=== PATIENT | male | born 1940 | race Caucasian/White ===

== ENCOUNTER 2017-09-21 07:29 | Inpatient (IN) | payer OTHER ==
[2017-09-11 12:34] VITALS: Ht 170.2 cm; Wt 98.4 kg
--- NOTE | 2017-09-11 13:15 | PAT Medication Instructions ---
Service Date Sep 11, 2017. Current Home Medication List Acetaminophen (Tylenol), 325 MG PO QD PRN for Pain Aspirin Enteric Coated (Ecotrin Or Generic), 325 MG PO QAM Celecoxib (CeleBREX), 1 CAP PO QAM Metoprolol Tartrate (Lopressor) (Lopressor), 50 MG PO BID Naproxen (Aleve), 1-2 TABS PO QD PRN for Pain Nitroglycerin (Nitrostat), 0.4 MG UT PRN Simvastatin (Zocor), 10 MG PO QPM Tamsulosin Hcl (Flomax), 0.4 MG PO QAM Tolterodine Tartrate (Detrol LA), 1 CAP PO QPM Medication Instructions For Your Scheduled Surgery -Follow your surgeon's instructions for: Aspirin Enteric Coated (Ecotrin Or Generic), 325 MG PO QAM (Will switch to 81MG on 09/14) Celecoxib (CeleBREX), 1 CAP PO QAM (STOP taking on 09/14) Naproxen (Aleve), 1-2 TABS PO QD PRN for Pain -Continue as directed: Nitroglycerin (Nitrostat), 0.4 MG UT PRN - Take the following medications the morning of surgery with a sip of water: Acetaminophen (Tylenol), 325 MG PO QD PRN for Pain (if needed, can be taken up to four hours before surgery) Metoprolol Tartrate (Lopressor) (Lopressor), 50 MG PO BID Tamsulosin Hcl (Flomax), 0.4 MG PO QAM - Take the following medications as scheduled the night before surgery: Acetaminophen (Tylenol), 325 MG PO QD PRN for Pain (if needed) Metoprolol Tartrate (Lopressor) (Lopressor), 50 MG PO BID Simvastatin (Zocor), 10 MG PO QPM Tolterodine Tartrate (Detrol LA), 1 CAP PO QPM If you have any questions please call us at [phone] or [phone] or [phone]
[2017-09-11 13:37] LABS: BASO % 0.4 %; BASO ABS # 0.03 K/uL (0-0.2); EOS % 5.7 %; EOS ABS # 0.41 K/uL (0-0.5); HEMATOCRIT 42.8 % (42-52); IG# 0.03 K/uL (0.00-0.02); LYMPH % 20.5 %; LYMPH ABS # 1.48 K/uL (1.2-3.4); MEAN CELL VOLUME 85.3 fL (80-100); MEAN CORPUSCULAR HEMOGLOBIN 29.9 pg (25-34); MEAN PLATELET VOLUME 11.9 fL (7.4-10.4); MONO % 9.7 %; NEUT % 63.3 %; NEUT ABS # 4.57 K/uL (1.4-6.5); PLATELET COUNT 181 K/uL (130-400); RED CELL DISTRIBUTION WIDTH CV 13.7 % (11.5-14.5); RED CELL DISTRIBUTION WIDTH SD 42.1 fL (36.4-46.3); WHITE BLOOD COUNT 7.22 K/uL (4.8-10.8)
--- NOTE | 2017-09-11 13:42 | DIAGNOSTIC IMAGING REPORT ---
CHEST 2 VIEWS ROUTINE CLINICAL HISTORY: 77 years-old Male presenting with preoperative assessment. TECHNIQUE: PA and lateral views of the chest were obtained. COMPARISON: None. FINDINGS: Median sternotomy wires and bypass graft rings noted. Atherosclerosis of aortic arch. Cardiac silhouette normal in size. Lungs and pleural spaces clear. Degenerative changes of the thoracic spine. Upper abdomen normal. IMPRESSION: 1. No acute cardiopulmonary disease. Electronically signed by: Paul Orantes M.D. 09/11/2017 1:41 PM Dictated Date/Time: 09/11/2017 1:40 PM
[2017-09-11 13:52] LABS: CALCIUM 8.8 mg/dl (8.5-10.1); CREATININE 0.99 mg/dl (0.60-1.40); POTASSIUM 4.8 mmol/L (3.5-5.1)
[~2017-09-21] VITALS: Ht 170.2 cm; Wt 98.4 kg
[2017-09-21] VITALS (9 sets, daily range): BP systolic 121–166; BP diastolic 63–77; PULSE 54–86; TEMP 36.3–36.6; O2SAT 96–99
[~2017-09-21 07:29] MED LIST: ACET-1311 PO; ACETAMINOPHEN 500 MG TAB PO SCH; ASPI-113 PO; CEFAZOLIN 2000MG IV PUSH 15 ML IV SCH; CLB/200 PO; CeleBREX 200 MG CAP PO SCH; DTRSR4 PO; GABAPENTIN 300 MG CAP PO SCH; ISOS30TA3 PO; LACTATED RINGER'S 1000ML 1,000 ML IV SCH; METO50TA16 PO; NAPR1TAB9 PO; NTRGSL/4 UT; SIMV10TA2 PO; TAMS0.4C38 PO
[2017-09-21] MEDS ORDERED: MIDAZOLAM HCL 1 MG/ML 2ML VIAL ONE (09:42)
[2017-09-21] MEDS ORDERED: FENTANYL CITRATE INJ 50 MCG/1 ML 2 ML VIAL ONE ×3 (09:42→12:03)
--- NOTE | 2017-09-21 09:46 | History & Physical Bridge Note ---
H&P Re-Evaluation Bridge Note: I have examined the patient, reviewed the History & Physical and in the interval since the performance of the History & Physical I have noted the following changes of clinical significance: No changes noted
--- NOTE | 2017-09-21 09:47 | History and Physical ---
History & Physical Date Sep 21, 2017. Chief Complaint Back and leg pain History of Present Illness The patient is a 77 year old male with complaints of back and leg pain Additional History Hepatic Disease: No Endocrine Disorder: No Kidney Disease: No Hypertension: Yes Heart Disease: No Bleeding Tendencies: No Infectious Diseases: No Allergies Coded Allergies: No Known Allergies (Verified , 09/21/17) Home Medications Scheduled Aspirin Enteric Coated (Ecotrin Or Generic), 325 MG PO QAM Celecoxib (CeleBREX), 1 CAP PO QAM Isosorbide Mononitrate Ext Rel (Imdur Ext Rel), 30 MG PO QAM Metoprolol Tartrate (Lopressor) (Lopressor), 50 MG PO BID Nitroglycerin (Nitrostat), 0.4 MG UT PRN Simvastatin (Zocor), 10 MG PO QPM Tamsulosin Hcl (Flomax), 0.4 MG PO QAM Tolterodine Tartrate (Detrol LA), 1 CAP PO QPM Scheduled PRN Acetaminophen (Tylenol), 325 MG PO QD PRN for Pain Naproxen (Aleve), 1-2 TABS PO QD PRN for Pain Physical Examination Skin: warm/dry, no rash Eyes: normal inspection, EOMI, sclerae normal ENT: normal ENT inspection, pharynx normal Head: normocephalic, atraumatic Neck: supple, no adenopathy, trachea midline Respiratory/Chest: lungs clear, normal breath sounds, no respiratory distress Cardiovascular: regular rate, rhythm, no edema, no murmur Abdomen / GI: normal bowel sounds, non tender Back: normal inspection Extremities: normal inspection, normal range of motion Neurologic/Psych: no motor/sensory deficits, alert, normal reflexes, oriented x 3 Diagnosis Lumbar spinal stenosis with neurogenic claudication Plan of Treatment Peek compression and fusion L4-S1 possible L3-4
[2017-09-21] MEDS ORDERED: BUPIVACAINE/EPINEPHRINE 0.5% MPF 1:200,000 30 ML VIAL ONE (10:03)
[2017-09-21] MEDS ORDERED: BACITRACIN 50000 UNIT VIAL ONE (10:03)
[2017-09-21] MEDS ORDERED: ATROPINE SULFATE 0.1 MG/ML 5ML SYR IV PRN (10:15)
[2017-09-21] MEDS ORDERED: HYDROmorphone INJ 0.5 MG/0.5 ML SYR IV PRN (10:15)
[2017-09-21] MEDS ORDERED: PROMETHAZINE HCL INJ 6.25 MG in SODIUM CHLORIDE 0.9% 50ML 50 ML IV PRN (10:15)
[2017-09-21] MEDS ORDERED: ONDANSETRON INJ 2 MG/ML 2 ML VIAL IV PRN ×2 (10:15→13:00)
[2017-09-21] MEDS ORDERED: FENTANYL CITRATE INJ 50 MCG/1 ML 2 ML VIAL IV PRN (10:15)
[2017-09-21] MEDS ORDERED: EpHEDrine SULFATE INJ 50 MG/ML AMP IV PRN (10:15)
[2017-09-21] MEDS ORDERED: HYDROmorphone INJ 2 MG/ML SYR/VIAL ONE ×2 (10:39→12:47)
[2017-09-21] MEDS ORDERED: ALBUMIN HUMAN 5% 12.5 GM/250 ML VIAL IV ONE ×2 (11:55→12:49)
[2017-09-21] MEDS ORDERED: SODIUM CHLORIDE 0.9% 1000ML 1,000 ML IV SCH (12:51)
--- NOTE | 2017-09-21 12:51 | [facility] Operative Report ---
Operative Report Operative Date Sep 21, 2017. Pre-Operative Diagnosis Lumbar spinal stenosis with neurogenic claudication Post-Operative Diagnosis Lumbar spinal stenosis with neurogenic claudication Procedure(s) Performed 1. Lumbar decompression medial facetectomies foraminotomies L2-3 L3-4 L4-5 L5-S1. #2 posterior spinal fusion L3-4 L4-5 L5-S1. #3 placement posterior segmental instrumentation L3-4 L4-5 L5-S1. #4 interbody fusion L5-S1. #5 placement titanium cage 14 x 26 mm at L5-S1. #6 placement of locally harvested morselized autograft in the posterior gutters. #7 placement InFUSE collagen sponge combined with mass graft in the posterior lateral gutters and ostial amp in the interbody space. Surgeon Dr. Godoy [facility] Surgeon(s) Leanne Gaitan PA-C Estimated Blood Loss 750ml Findings Severe central spinal stenosis with spondylolisthesis Specimens None per surgeon Anesthesia Type General Description of Procedure Patient was met with preoperatively case discussed all questions addressed. After informed consent obtained patient was taken to the operative suite underwent intubation and placed in a prone position injection of 1 of the Claudio frame all bony prominences well-padded eyes inspected to ensure no external pressure placed upon the. This point the lumbar spine was prepped and draped in the normal sterile fashion. Sharp dissection with the assistance of Bovie cautery was performed down to and exposing the lamina and transverse processes of L3-L4-L5 and sacral ala bilaterally. Obvious pars defect at L4 551 appreciated. Complete laminectomy of L5 L4 L3 and partial laminectomy of L2 was performed addressing severe lateral recess and foraminal disease. Pedicle screws in place and L3-L4 L5-S1 levels bilaterally with the assistance of fluoroscopy and a Propacet holger placed. Through a trans-foraminal approach and left complete discectomy of L5-S1 was performed endplates created to subcortical bleeding bone and a 14 x 26 mm titanium cage filled with OsteoSet bone graft tapped in position. Rods were then locked in final position bilaterally. Transverse processes of L3-L4-L5 and sacral ala burred to subcortical bleeding bone. Infuse collagen sponge mesh graft and locally harvested morselized auto was placed in the posterior lateral gutters. 15 round CARYL drain inserted. Incision was then closed with 1 Vicryl fascia 2-0 Vicryl superonasally 4 Monocryl for final skin closure Steri-Strips sterile dressings placed. Patient will continue PACU stable condition. Please note Leanne Menard present throughout the entire procedure involved in patient positioning complex portions of the surgery and final skin closure. I attest to the content of the Intraoperative Record and any orders documented therein. Any exceptions are noted below.
[2017-09-21] MEDS ORDERED: FLOSEAL HEMOSTATIC MATRIX 10ML TOP ONE (12:54)
[2017-09-21] MEDS ORDERED: PROPOFOL IV EMULSION 10 MG/ML 20 ML VIAL IV ONE (12:57)
[2017-09-21] MEDS ORDERED: NEOSTIGMINE METHYLSULFATE 1 MG/ML 10ML VIAL ONE (12:57)
[2017-09-21] MEDS ORDERED: ONDANSETRON INJ 2 MG/ML 2 ML VIAL ONE ×2 (12:57)
[2017-09-21] MEDS ORDERED: KETOROLAC TROMETHAMINE 30 MG/ML VIAL ONE (12:57)
[2017-09-21] MEDS ORDERED: LIDOCAINE HCL 2% 2 ML VIAL (20MG/ML) ONE (12:57)
[2017-09-21] MEDS ORDERED: ROCURONIUM BROMIDE 10 MG/ML 5 ML VIAL IV ONE (12:57)
[2017-09-21] MEDS ORDERED: DEXAMETHASONE SOD INJ 4 MG/ML VIAL ONE (12:57)
[2017-09-21] MEDS ORDERED: EpHEDrine SULFATE 50MG/5ML SYR ONE (12:57)
[2017-09-21] MEDS ORDERED: GLYCOPYRROLATE INJ 0.2 MG/ML VIAL ONE (12:57)
[2017-09-21] MEDS ORDERED: MAGNESIUM HYDROXIDE SUSP 30 ML UDC PO PRN (13:00)
[2017-09-21] MEDS ORDERED: BISACODYL 10 MG SUPP PR PRN (13:00)
[2017-09-21] MEDS ORDERED: PROMETHAZINE HCL INJ 12.5 MG in SODIUM CHLORIDE 0.9% 50ML 50 ML IV PRN (13:00)
[2017-09-21] MEDS ORDERED: LORAZEPAM INJ 0.5 MG in SYRINGE 0.75 ML IV PRN (13:00)
[2017-09-21] MEDS ORDERED: SOD PHOSPHATE/SOD BIPHOSPHATE ENEMA 132 ML BTL PR PRN (13:00)
[2017-09-21] MEDS ORDERED: NALOXONE HCL 0.4 MG/1 ML VIAL/CARP IV PRN ×2 (13:00)
[2017-09-21] MEDS ORDERED: DO NOT ADMINISTER FLU VACCINE PRN (13:00)
[2017-09-21] MEDS ORDERED: DO NOT ADMINISTER PNEUMOCOCCAL VACCINE PRN (13:00)
[2017-09-21] MEDS ORDERED: FAMOTIDINE 20 MG TAB PO PRN (13:00)
[2017-09-21] MEDS ORDERED: ALUMINUM/MAGNESIUM SUSP 30 ML UDC PO PRN (13:00)
[2017-09-21] MEDS ORDERED: NITROGLYCERIN 0.4 MG SL PER TAB CHARGE UT PRN (13:00)
[2017-09-21] MEDS ORDERED: ACETAMINOPHEN 500 MG TAB PO PRN (13:00)
[2017-09-21] MEDS ORDERED: METOCLOPRAMIDE HCL INJ 5 MG/ML 2 ML VIAL IV PRN (13:00)
[2017-09-21] MEDS ORDERED: ACETAMINOPHEN IV 100 ML IV PRN (13:00)
[2017-09-21] MEDS ORDERED: hydrOXYzine HCL 25 MG TAB PO PRN (13:00)
[2017-09-21] MEDS ORDERED: LORAZEPAM 0.5 MG TAB PO PRN (13:00)
--- NOTE | 2017-09-21 13:12 | DIAGNOSTIC IMAGING REPORT ---
LUMBAR SPINE 2 OR 3 VIEW CLINICAL HISTORY: Decompression and fusion. COMPARISON STUDY: No previous studies for comparison. Fluoroscopy time: 37.3 seconds. FINDINGS: 3 fluoroscopic images demonstrate an L5-S1 discectomies and interbody spacer placement. There is a posterior decompression. There are bilateral pedicle screws at the L3, L4, L5 and S1 levels. A linear radiodensity representing a marker at the left L5-S1 level was subsequently removed by the surgeon. IMPRESSION: 1. Fluoroscopic images demonstrating an L5-S1 discectomy and L3-S1 bilateral pedicle screw fusion. 2. Linear radiodensity representing a marker at the left L5-S1 level which was subsequently removed by the surgeon. Electronically signed by: Nicolás Sunshine M.D. 09/21/2017 1:11 PM Dictated Date/Time: 09/21/2017 1:02 PM
[2017-09-21] MEDS: HYDROmorphone HCL 0.5MG/ML 50 ML CASSETTE IV PRN ×3 (13:34→23:02)
--- NOTE | 2017-09-21 13:59 | Anesthesiology Progress Note ---
Anesthesia Post Op Note Date & Time Sep 21, 2017 at 13:59 Vital Signs Pain Intensity: 0 Vital Signs Past 12 Hours Date Time Temp Pulse Resp B/P (MAP) Pulse Ox O2 Delivery O2 Flow Rate FiO2 09/21/17 13:50 36.3 75 11 159/70 98 Nasal Cannula 4 09/21/17 13:40 79 14 163/74 99 Nasal Cannula 4 09/21/17 13:30 80 13 160/78 99 Oxymask 10 09/21/17 13:20 83 11 192/80 97 Oxymask 10 09/21/17 13:11 36.8 83 12 152/81 98 Oxymask 10 09/21/17 08:19 36.4 54 20 141/77 98 Room Air Notes Mental Status: alert / awake / arousable, participated in evaluation Pt Amnestic to Procedure: Yes Nausea / Vomiting: adequately controlled Pain: adequately controlled Airway Patency, RR, SpO2: stable & adequate BP & HR: stable & adequate Hydration State: stable & adequate Anesthetic Complications: no major complications apparent
--- NOTE | 2017-09-21 15:21 | Medical Consult ---
Consultation Date of Consultation: Sep 21, 2017. Attending Physician: Luis Daniel Godoy D.O. Reason for Consultation: Postoperative medical management History of Present Illness 77-year-old male who is status post L2-S1 decompression fusion today by Dr. Godoy. Postoperatively the patient is doing well. He reports his incisional pain as a dull ache. He denies numbness and tingling to lower extremities. No chest pain or shortness of breath. He denies lightheadedness and dizziness. No abdominal pain or nausea. Gama catheter is in place draining clear yellow urine. Past Medical/Surgical History Medical Problems: (1) BPH (benign prostatic hyperplasia) Status: Chronic (2) CAD (coronary artery disease) Permanent Comment: S/P CABG x 2008 Status: Chronic (3) Dyslipidemia Status: Chronic (4) Paroxysmal atrial fibrillation Permanent Comment: Postoperative Status: Chronic Surgical Problems: (1) H/O shoulder surgery Status: Chronic (2) History of total right hip replacement Status: Chronic Family History FH: CAD (coronary artery disease) FATHER Social History Smoking Status: Former Smoker Alcohol Use: none Allergies Coded Allergies: No Known Allergies (Verified , 09/21/17) Home Medications Imdur Ext Rel (Isosorbide Mononitrate) 30 Mg Ertab 30 Mg PO QAM Tylenol (Acetaminophen) 325 Mg Tab 325 Mg PO QD PRN Detrol LA (Tolterodine Tartrate) 4 Mg Capcr 1 Cap PO QPM 90 Days CeleBREX (Celecoxib) 200 Mg Cap 1 Cap PO QAM 30 Days Flomax (Tamsulosin Hcl) 0.4 Mg Cap 0.4 Mg PO QAM Aleve (Naproxen) 220 Mg Tab 1-2 Tabs PO QD PRN Ecotrin Or Generic (Aspirin) 325 Mg Ectab 325 Mg PO QAM will be stopping on 09/14/2017; but will start 81 mg Zocor (Simvastatin) 10 Mg Tab 10 Mg PO QPM Lopressor (Metoprolol Tartrate) 50 Mg Tab 50 Mg PO BID takes with breakfast and dinner Nitrostat (Nitroglycerin) 0.4 Mg Tab 0.4 Mg UT PRN Current Inpatient Medications Current Inpatient Medications Medications (Trade) Dose Ordered Sig/Rudy Route Start Time Stop Time Status Last Admin Dose Admin Celecoxib (CeleBREX CAP) 200 mg PREOP PO 09/21/17 06:00 09/21/17 18:00 09/21/17 08:31 200 MG Fentanyl Citrate (Fentanyl Inj) 50 mcg Q5M PRN IV 09/21/17 10:15 09/21/17 15:30 Hydromorphone HCl (Dilaudid Inj) 0.5 mg Q5M PRN IV 09/21/17 10:15 09/21/17 15:30 Ondansetron HCl (Zofran Inj) 4 mg ONE PRN IV 09/21/17 10:15 09/21/17 15:30 Promethazine HCl 6.25 mg/Sodium Chloride 50.25 ml @ 202 mls/hr ONE PRN IV 09/21/17 10:15 09/21/17 15:30 Ephedrine Sulfate (EpHEDrine SULFATE INJ) 5 mg Q5M PRN IV 09/21/17 10:15 09/21/17 15:30 Atropine Sulfate (Atropine Sulfate 0.1mg/ml Inj) 0.5 mg Q1M PRN IV 09/21/17 10:15 09/21/17 15:30 Promethazine HCl 12.5 mg/Sodium Chloride 50.5 ml @ 202 mls/hr Q6H PRN IV 09/21/17 13:00 10/21/17 12:59 Ondansetron HCl (Zofran Inj) 4 mg Q6H PRN IV 09/21/17 13:00 10/21/17 12:59 Metoclopramide HCl (Reglan Inj) 10 mg Q6H PRN IV 09/21/17 13:00 10/21/17 12:59 Lorazepam (Ativan Tab) 0.5 mg Q8H PRN PO 09/21/17 13:00 10/21/17 12:59 Lorazepam 0.5 mg/ Syringe 1 ml @ 1 mls/min Q8H PRN IV 09/21/17 13:00 10/21/17 12:59 Pneumococcal Polysaccharide Vaccine 1 ea PRN PRN N/A 09/21/17 13:00 10/21/17 12:59 Influenza Virus Vacc Triv Types A&B 1 ea PRN PRN N/A 09/21/17 13:00 10/21/17 12:59 Polyethylene (Miralax Powder Packet) 17 gm Q6 PO 09/23/17 06:00 10/23/17 05:59 Bisacodyl (Dulcolax Supp) 10 mg DAILY PRN MD 09/21/17 13:00 10/21/17 12:59 Magnesium Hydroxide (Milk Of Magnesia Susp) 30 ml DAILY PRN PO 09/21/17 13:00 10/21/17 12:59 Hydromorphone HCl (Dilaudid Inj) 0.5-1mg prn moder... Q3H PRN IV 09/22/17 06:00 10/06/17 05:59 Oxycodone HCl (Roxicodone Immediate Rel Tab) 5-10mg prn moderate to sev... Q4H PRN PO 09/22/17 06:00 10/06/17 05:59 Cefazolin Sodium 2000 mg/Syringe 15 ml @ 100 mls/hr Q8H IV 09/21/17 18:00 09/22/17 02:08 Sodium Chloride 1,000 ml @ 150 mls/hr Q6H40M IV 09/21/17 12:51 10/21/17 12:50 Acetaminophen (Tylenol Tab) 1,000 mg Q8H PRN PO 09/21/17 13:00 10/21/17 12:59 Acetaminophen 100 ml @ 400 mls/hr Q8H PRN IV 09/21/17 13:00 10/21/17 12:59 Naloxone HCl (Narcan Inj) 0.1 mg Q5M PRN IV 09/21/17 13:00 10/21/17 12:59 Senna/Docusate Sodium (Senokot S Tab) 2 tab HS PO 09/21/17 21:00 10/21/17 20:59 Sodium Biphosphate/ Sodium Phosphate (Fleet Enema) 132 ml ONE PRN MD 09/21/17 13:00 10/21/17 12:59 Hydroxyzine HCl (Vistaril Tab) 25 mg Q8H PRN PO 09/21/17 13:00 10/21/17 12:59 Al Hydroxide/Mg Hydroxide (Maalox Susp) 30 ml Q6H PRN PO 09/21/17 13:00 10/21/17 12:59 Famotidine (Pepcid Tab) 20 mg Q12 PRN PO 09/21/17 13:00 10/21/17 12:59 Diphenhydramine HCl (Benadryl Cap) 25 mg Q6H PRN PO 09/21/17 13:00 10/21/17 12:59 Miscellaneous Information (Discontinue YARN INSPECTOR) 1 ea TODAY@0600 N/A 09/22/17 06:00 09/22/17 06:01 Naloxone HCl (Narcan Inj) 0.1 mg Q5M PRN IV 09/21/17 13:00 09/22/17 06:00 Hydromorphone HCl (Dilaudid Double Spindle Shaper Operator) 25 mg PRN PRN IV 09/21/17 13:00 09/22/17 06:00 09/21/17 14:20 25 MG Sodium Chloride 1,000 ml @ 15 mls/hr Q24H IV 09/21/17 12:51 09/22/17 06:00 Aspirin (Ecotrin Tab) 325 mg QAM PO 09/22/17 09:00 10/22/17 08:59 Isosorbide Mononitrate (Imdur Ext Rel Tab) 30 mg QAM PO 09/22/17 09:00 10/22/17 08:59 Metoprolol Tartrate (Lopressor Tab) 50 mg BIDM PO 09/21/17 17:45 10/21/17 17:44 Nitroglycerin (Nitrostat Tab) 0.4 mg Q5M PRN UT 09/21/17 13:00 10/21/17 12:59 Simvastatin (Zocor Tab) 10 mg QPM PO 09/21/17 21:00 10/21/17 20:59 Tamsulosin HCl (Flomax Cap) 0.4 mg QAM PO 09/22/17 09:00 10/22/17 08:59 Tolterodine Tartrate (Detrol LA Cap) 4 mg QPM PO 09/21/17 21:00 10/21/17 20:59 Review of Systems ROS per HPI, all other systems reviewed and negative Physical Exam Date Time Temp Pulse Resp B/P (MAP) Pulse Ox O2 Delivery O2 Flow Rate FiO2 09/21/17 14:51 79 16 135/72 (93) 96 Nasal Cannula 2.0 09/21/17 14:20 36.3 78 16 166/73 (104) 98 Nasal Cannula 2.0 09/21/17 14:20 Nasal Cannula 2.0 09/21/17 14:00 77 10 169/74 98 Nasal Cannula 4 09/21/17 13:50 36.3 75 11 159/70 98 Nasal Cannula 4 09/21/17 13:40 79 14 163/74 99 Nasal Cannula 4 09/21/17 13:30 80 13 160/78 99 Oxymask 10 09/21/17 13:20 83 11 192/80 97 Oxymask 10 09/21/17 13:11 36.8 83 12 152/81 98 Oxymask 10 09/21/17 08:19 36.4 54 20 141/77 98 Room Air General Appearance: WD/WN, no apparent distress Head: normocephalic, atraumatic Eyes: normal inspection, EOMI, sclerae normal ENT: hearing grossly normal, + pertinent finding (Mucous membranes moist) Neck: supple, no JVD, trachea midline Respiratory/Chest: lungs clear, normal breath sounds, no respiratory distress Cardiovascular: regular rate, rhythm, no edema, normal peripheral pulses Abdomen/GI: normal bowel sounds, non tender, soft, no organomegaly, + distended Genitourinary - Male: + pertinent finding (Gama in place draining clear yellow urine) Back: + pertinent finding (S/P back surgery, pedal pushes and pulls strong bilaterally, drain in place draining bloody drainage) Extremities/Musculoskelatal: normal inspection, no calf tenderness, normal capillary refill Neurologic/Psych: no motor/sensory deficits, alert, normal mood/affect, oriented x 3 Skin: normal color, warm/dry Laboratory Results Last 24 Hours Test 09/21/17 14:12 Bedside Glucose 167 mg/dl Assessment & Plan S/P L2-S1 DECOMPRESSION FUSION - POD#0 - activity and wound care orders as per ortho - pain control with bowel regimen - PT/OT - monitor H/H for acute blood loss anemia and transfuse blood products PRN - EBL 750 cc HISTORY OF CORONARY ARTERY DISEASE -stable, no reports chest pain -Continue aspirin, beta-radha, statin, nitrate BPH -Continue tamsulosin DVT PROPHYLAXIS -TEDs/SCD as per spine orthopedics Thank you for this consultation. We will follow the patient with you during their hospital stay. You can reach a member of the [facility] Team 19/12 via pager @ . Attending Addendum Pt was seen and examined. Agreed with Racquel ARREOLA exam, assessment and plan. 77- year-old male status post L2-S1 decompression fusion done by Dr. Godoy. No post op complications. Denies any chest pain, palpitation, dizziness and sob. Continue monitor H/H and incentive spirometry. Pain management as per ortho.PT/ OT and fall precaution. MD Arminda
[2017-09-21] MEDS: METOPROLOL TARTRATE 50 MG TAB PO SCH (17:55)
[2017-09-21] MEDS: CEFAZOLIN IV 2,000 MG in SYRINGE 0 ML IV SCH (17:55)
[2017-09-21] MEDS: SODIUM CHLORIDE 0.9% 1000ML 1,000 ML IV SCH ×2 (17:56→23:21)
[2017-09-21] MEDS: DOCUSATE SODIUM/SENNA 50/8.6MG TAB PO SCH (20:28)
[2017-09-21] MEDS: TOLTERODINE TARTRATE LA 4 MG CAPCR PO SCH (20:28)
[2017-09-21] MEDS: SIMVASTATIN 10 MG TAB PO SCH (20:28)
[2017-09-21] MEDS ORDERED: NURSING VERBAL MED ORDER ONE (20:30)
[2017-09-22] MEDS: CEFAZOLIN IV 2,000 MG in SYRINGE 0 ML IV SCH (01:44)
[2017-09-22 03:25] VITALS: BP 122/60; PULSE 85; TEMP 36.8; O2SAT 95
[2017-09-22] MEDS: SODIUM CHLORIDE 0.9% 1000ML 1,000 ML IV SCH (05:57)
[2017-09-22] MEDS ORDERED: DC PCA SCH (06:00)
[2017-09-22] MEDS ORDERED: HYDROmorphone INJ 0.5 MG/0.5 ML SYR IV PRN (06:00)
[2017-09-22] MEDS ORDERED: NURSING VERBAL MED ORDER ONE (06:00)
[2017-09-22 07:11] LABS: BASO % 0.1 %; BASO ABS # 0.01 K/uL (0-0.2); HEMOGLOBIN 11.3 g/dL (14.0-18.0); IG# 0.07 K/uL (0.00-0.02); LYMPH % 5.5 %; LYMPH ABS # 0.72 K/uL (1.2-3.4); MEAN CELL VOLUME 85.7 fL (80-100); MEAN CORPUSCULAR HEMOGLOBIN 29.4 pg (25-34); MEAN CORPUSCULAR HGB CONC 34.2 g/dl (32-36); MEAN PLATELET VOLUME 11.7 fL (7.4-10.4); MONO % 7.5 %; MONO ABS # 0.98 K/uL (0.11-0.59); NEUT % 86.4 %; NEUT ABS # 11.36 K/uL (1.4-6.5); PLATELET COUNT 170 K/uL (130-400); RED CELL DISTRIBUTION WIDTH CV 13.6 % (11.5-14.5); RED CELL DISTRIBUTION WIDTH SD 42.6 fL (36.4-46.3); WHITE BLOOD COUNT 13.14 K/uL (4.8-10.8)
--- NOTE | 2017-09-22 07:29 | Anesthesiology Progress Note ---
Anesthesia Post Op Note Date & Time Sep 22, 2017 at 07:28 Vital Signs Pain Intensity: 0.0 Vital Signs Past 12 Hours Date Time Temp Pulse Resp B/P (MAP) Pulse Ox O2 Delivery O2 Flow Rate FiO2 09/22/17 03:25 36.8 85 18 122/60 (80) 95 Room Air 09/21/17 23:23 Room Air 09/21/17 23:01 36.6 78 17 121/63 (82) 96 Room Air 09/21/17 20:31 74 16 134/66 (88) 96 Room Air 09/21/17 19:29 36.4 86 16 127/67 (87) 96 Room Air 2.0 Notes Mental Status: alert / awake / arousable, participated in evaluation Pt Amnestic to Procedure: Yes Nausea / Vomiting: adequately controlled Pain: adequately controlled Airway Patency, RR, SpO2: stable & adequate BP & HR: stable & adequate Hydration State: stable & adequate Anesthetic Complications: no major complications apparent
[2017-09-22 07:47] LABS: CALCIUM 8.2 mg/dl (8.5-10.1); CREATININE 1.15 mg/dl (0.60-1.40)
[2017-09-22 07:48] VITALS: BP 127/67; PULSE 76; TEMP 37; O2SAT 97
[2017-09-22] MEDS: ISOSORBIDE MONONITRATE 30 MG TABCR PO SCH (08:57)
[2017-09-22] MEDS: ASPIRIN 325 MG ECTAB PO SCH (08:57)
[2017-09-22] MEDS: TAMSULOSIN HCL 0.4 MG CAP PO SCH (08:57)
[2017-09-22] MEDS: METOPROLOL TARTRATE 50 MG TAB PO SCH ×2 (08:57→18:21)
[2017-09-22] MEDS: OXYCODONE HCL IR 5 MG TAB (IMMEDIATE RELEASE) PO PRN ×4 (08:57→23:56)
--- NOTE | 2017-09-22 09:35 | Clinical Documentation Query ---
ANGELA Mobley : CLINICAL DOCUMENTATION QUERY Preoperative H&H 15.0 g/dl and 42.8%. POD #1, repeat values 11.3 g/dl and 33.0%. Total blood loss to date (operative and postoperative) totaling 1,430 ml's. He is being monitored with serial hematology and I/O including drain outputs. In your clinical opinion is this patient being managed for: ( ) Acute blood loss and hemodilutional anemia ( ) Not Agree ( ) Other explanation of clinical findings (Please Explain. If no explanation given, this would be considered a no response.) ( ) Unable to determine ( ) Need to Discuss (Please call CDS via extension or qliq. If no interaction occurs this is considered a no response.) The medical record reflects the following clinical findings, treatment, and risk factors. Clinical Indicators: As above Treatment: He is being monitored with serial hematology and I/O including drain outputs. Risk Factors: Acute perioperative blood losses. Please clarify and document your clinical opinion in the progress notes and discharge summary. Terms such as "probable", "suspected", "likely", "questionable", "possible", or "still to be ruled out" are acceptable. IF IN AGREEMENT, YOU MUST DOCUMENT ABOVE DIAGNOSTIC STATEMENT IN DAILY PROGRESS NOTES AND DISCHARGE SUMMARY. This document is not part of the patient's record. Thank You, Parish James, QASIM [phone]
[2017-09-22 11:01] VITALS: BP 115/64; PULSE 68; TEMP 36.9; O2SAT 93
--- NOTE | 2017-09-22 14:52 | Progress Note ---
Progress Note Date of Service Sep 22, 2017. Progress Note Back pain is controlled leg symptoms markedly improved. Vital signs are stable. On exam he is in a chair at bedside is good strength testing appears comfortable. Assessment status post lumbar depression fusion per plan at this time we will initiate physical therapy advance his bowel regimen anticipate discharge home Monday or Monday.
[2017-09-22 15:03] VITALS: BP 170/64; PULSE 70; TEMP 37.3; O2SAT 95
[2017-09-22 15:34] VITALS: BP 121/68
[2017-09-22] MEDS: SIMVASTATIN 10 MG TAB PO SCH (21:19)
[2017-09-22] MEDS: TOLTERODINE TARTRATE LA 4 MG CAPCR PO SCH (21:19)
[2017-09-22] MEDS: DOCUSATE SODIUM/SENNA 50/8.6MG TAB PO SCH (21:20)
--- NOTE | 2017-09-22 21:21 | Progress Note ---
Medicine Progress Note Date & Time of Visit: Sep 22, 2017 at 13:50 . Subjective Doing well postoperatively. No chest pain. No cough or dyspnea. No nausea or vomiting. Not passing any flatus or stool yet. Gama catheter just removed; has not yet voided. Postop pain well-controlled. . Objective Last 8 Hrs Date Time Temp Pulse Resp B/P (MAP) Pulse Ox O2 Delivery O2 Flow Rate FiO2 09/22/17 15:34 121/68 (85) 09/22/17 15:30 Room Air 09/22/17 15:03 37.3 70 16 170/64 (99) 95 Room Air Physical Exam: General-sitting in chair, no distress Lungs- clear to auscultation; no respiratory distress Cardiovascular- RRR; no murmur or gallop appreciated; no JVD; no pretibial edema Abdomen- + bowel sounds, soft, nontender Extremities- no cyanosis; no calf tenderness Neuro- alert, oriented Skin- warm & dry . Laboratory Results: Last 24 Hours Test 09/22/17 06:18 09/22/17 08:03 White Blood Count 13.14 K/uL Red Blood Count 3.85 M/uL Hemoglobin 11.3 g/dL Hematocrit 33.0 % Mean Corpuscular Volume 85.7 fL Mean Corpuscular Hemoglobin 29.4 pg Mean Corpuscular Hemoglobin Concent 34.2 g/dl Platelet Count 170 K/uL Mean Platelet Volume 11.7 fL Neutrophils (%) (Auto) 86.4 % Lymphocytes (%) (Auto) 5.5 % Monocytes (%) (Auto) 7.5 % Eosinophils (%) (Auto) 0.0 % Basophils (%) (Auto) 0.1 % Neutrophils # (Auto) 11.36 K/uL Lymphocytes # (Auto) 0.72 K/uL Monocytes # (Auto) 0.98 K/uL Eosinophils # (Auto) 0.00 K/uL Basophils # (Auto) 0.01 K/uL RDW Standard Deviation 42.6 fL RDW Coefficient of Variation 13.6 % Immature Granulocyte % (Auto) 0.5 % Immature Granulocyte # (Auto) 0.07 K/uL Sodium Level 138 mmol/L Potassium Level mmol/L 4.4 mmol/L Chloride Level 109 mmol/L Carbon Dioxide Level 24 mmol/L Anion Gap 5.0 mmol/L Blood Urea Nitrogen 31 mg/dl Creatinine 1.15 mg/dl Est Creatinine Clear Calc Drug Dose 61.1 ml/min Estimated GFR () 71.2 Estimated GFR (Non- 61.5 BUN/Creatinine Ratio 27.2 Random Glucose 122 mg/dl Calcium Level 8.2 mg/dl Assessment & Plan S/P LUMBAR DECOMPRESSION AND FUSION Doing well postoperatively. CORONARY ARTERY DISEASE No anginal symptoms. Continue aspirin, metoprolol, nitrates, statin. PAROXYSMAL ATRIAL FIBRILLATION Currently in normal sinus rhythm. Continue aspirin and metoprolol. DYSLIPIDEMIA Continue simvastatin. BPH Gama catheter removed. Continue tamsulosin. VTE PROPHYLAXIS Per orthopedics protocol. DISPOSITION Patient anticipates being discharged home. Medical follow-up with Dr. Kelly. Thank you for this consultation. We will follow the patient with you during their hospital stay. You can reach a member of the [facility] Medicine Team 19/12 via pager @ [phone]. You can reach me via cell @ [phone]. . Current Inpatient Medications: Current Inpatient Medications Medications (Trade) Dose Ordered Sig/Rudy Route Start Time Stop Time Status Last Admin Dose Admin Promethazine HCl 12.5 mg/Sodium Chloride 50.5 ml @ 202 mls/hr Q6H PRN IV 09/21/17 13:00 10/21/17 12:59 Ondansetron HCl (Zofran Inj) 4 mg Q6H PRN IV 09/21/17 13:00 10/21/17 12:59 Metoclopramide HCl (Reglan Inj) 10 mg Q6H PRN IV 09/21/17 13:00 10/21/17 12:59 Lorazepam (Ativan Tab) 0.5 mg Q8H PRN PO 09/21/17 13:00 10/21/17 12:59 Lorazepam 0.5 mg/ Syringe 1 ml @ 1 mls/min Q8H PRN IV 09/21/17 13:00 10/21/17 12:59 Pneumococcal Polysaccharide Vaccine 1 ea PRN PRN N/A 09/21/17 13:00 10/21/17 12:59 Influenza Virus Vacc Triv Types A&B 1 ea PRN PRN N/A 09/21/17 13:00 10/21/17 12:59 Polyethylene (Miralax Powder Packet) 17 gm Q6 PO 09/23/17 06:00 10/23/17 05:59 Bisacodyl (Dulcolax Supp) 10 mg DAILY PRN MA 09/21/17 13:00 10/21/17 12:59 Magnesium Hydroxide (Milk Of Magnesia Susp) 30 ml DAILY PRN PO 09/21/17 13:00 10/21/17 12:59 Hydromorphone HCl (Dilaudid Inj) 0.5-1mg prn moder... Q3H PRN IV 09/22/17 06:00 10/06/17 05:59 Oxycodone HCl (Roxicodone Immediate Rel Tab) 5-10mg prn moderate to sev... Q4H PRN PO 09/22/17 06:00 10/06/17 05:59 09/22/17 19:25 5 MG Acetaminophen (Tylenol Tab) 1,000 mg Q8H PRN PO 09/21/17 13:00 10/21/17 12:59 Acetaminophen 100 ml @ 400 mls/hr Q8H PRN IV 09/21/17 13:00 10/21/17 12:59 Naloxone HCl (Narcan Inj) 0.1 mg Q5M PRN IV 09/21/17 13:00 10/21/17 12:59 Senna/Docusate Sodium (Senokot S Tab) 2 tab HS PO 09/21/17 21:00 10/21/17 20:59 09/22/17 21:20 2 TAB Sodium Biphosphate/ Sodium Phosphate (Fleet Enema) 132 ml ONE PRN MA 09/21/17 13:00 10/21/17 12:59 Hydroxyzine HCl (Vistaril Tab) 25 mg Q8H PRN PO 09/21/17 13:00 10/21/17 12:59 Al Hydroxide/Mg Hydroxide (Maalox Susp) 30 ml Q6H PRN PO 09/21/17 13:00 10/21/17 12:59 Famotidine (Pepcid Tab) 20 mg Q12 PRN PO 09/21/17 13:00 10/21/17 12:59 Diphenhydramine HCl (Benadryl Cap) 25 mg Q6H PRN PO 09/21/17 13:00 10/21/17 12:59 Aspirin (Ecotrin Tab) 325 mg QAM PO 09/22/17 09:00 10/22/17 08:59 09/22/17 08:57 325 MG Isosorbide Mononitrate (Imdur Ext Rel Tab) 30 mg QAM PO 09/22/17 09:00 10/22/17 08:59 09/22/17 08:57 30 MG Metoprolol Tartrate (Lopressor Tab) 50 mg BIDM PO 09/21/17 17:45 10/21/17 17:44 09/22/17 18:21 50 MG Nitroglycerin (Nitrostat Tab) 0.4 mg Q5M PRN UT 09/21/17 13:00 10/21/17 12:59 Simvastatin (Zocor Tab) 10 mg QPM PO 09/21/17 21:00 10/21/17 20:59 09/22/17 21:19 10 MG Tamsulosin HCl (Flomax Cap) 0.4 mg QAM PO 09/22/17 09:00 10/22/17 08:59 09/22/17 08:57 0.4 MG Tolterodine Tartrate (Detrol LA Cap) 4 mg QPM PO 09/21/17 21:00 10/21/17 20:59 09/22/17 21:19 4 MG
[2017-09-22 23:05] VITALS: BP 120/66; PULSE 80; TEMP 37.1; O2SAT 95
[2017-09-23] MEDS: POLYETHYLENE (MIRALAX) 17 GM PACK PO SCH ×3 (05:32→18:00)
[2017-09-23 06:24] LABS: CALCIUM 8.4 mg/dl (8.5-10.1); CREATININE 1.13 mg/dl (0.60-1.40)
[2017-09-23 07:17] VITALS: BP 149/75; PULSE 72; TEMP 36.8; O2SAT 97
--- NOTE | 2017-09-23 07:49 | Orthopedic Progress Note ---
Orthopedic Progress Note Date of Service Sep 23, 2017. Subjective Post OP Day: 2 Reports: feeling well Additional Notes: Val is postoperative day 2 multilevel lumbar decompression fusion. He is doing really well. No radicular leg pain. Back pain is controlled. CARYL drain output is 40 cc. He is passing flatus but no bowel movement. Was Ambulating 95 feet in physical therapy yesterday. Objective calves soft nontender, N/V intact, dressing C/D/I, A&O x3, toes mobile He is lying in bed. No obvious distress. Lower extremities are neurovascular intact bilaterally. Calves are soft and nontender bilaterally. Date Time Temp Pulse Resp B/P (MAP) Pulse Ox O2 Delivery O2 Flow Rate FiO2 09/23/17 07:17 36.8 72 17 149/75 (99) 97 Room Air 09/23/17 00:05 Room Air 09/22/17 23:05 37.1 80 18 120/66 (84) 95 Room Air 09/22/17 15:34 121/68 (85) 09/22/17 15:30 Room Air 09/22/17 15:03 37.3 70 16 170/64 (99) 95 Room Air 09/22/17 11:01 36.9 68 17 115/64 (81) 93 Room Air 09/22/17 07:50 Room Air 09/22/17 07:48 37.0 76 18 127/67 (87) 97 Room Air Assessment & Plan Assessment: Postoperative day 2 lumbar decompression instrumented fusion. Plan: Patient overall is doing well and making progress. Today we will continue physical therapy. DVT prophylaxis is in the form teds and SCDs. Maintain CARYL drain. Continue with bowel regimen. Anticipate discharge home tomorrow. Inhouse Planning Pain Management: Oxy IR DVT Prophylaxis: TEDs, SCDs Discharge Planning Discharge Planning: home DVT Prophylaxis: AUGUSTINAs
[2017-09-23] MEDS: OXYCODONE HCL IR 5 MG TAB (IMMEDIATE RELEASE) PO PRN ×3 (07:50→19:22)
[2017-09-23] MEDS: TAMSULOSIN HCL 0.4 MG CAP PO SCH (07:51)
[2017-09-23] MEDS: ASPIRIN 325 MG ECTAB PO SCH (07:51)
[2017-09-23] MEDS: ISOSORBIDE MONONITRATE 30 MG TABCR PO SCH (07:52)
[2017-09-23] MEDS: METOPROLOL TARTRATE 50 MG TAB PO SCH ×2 (08:10→19:18)
[2017-09-23 14:57] VITALS: BP 125/69; PULSE 76; TEMP 37.3; O2SAT 96
--- NOTE | 2017-09-23 18:05 | Progress Note ---
Medicine Progress Note Date & Time of Visit: Sep 23, 2017 at 16:20 . Subjective Doing well postoperatively. No chest pain. No cough or dyspnea. No nausea or vomiting. Not passing any stool yet; feels a bit bloated. Gama catheter removed yesterday; voiding without difficulty. Postop pain well-controlled. . Objective Last 8 Hrs Date Time Temp Pulse Resp B/P (MAP) Pulse Ox O2 Delivery O2 Flow Rate FiO2 09/23/17 14:57 37.3 76 18 125/69 (87) 96 Room Air Physical Exam: General-sitting in chair, no distress Lungs- clear to auscultation; no respiratory distress Cardiovascular- RRR; no murmur or gallop appreciated; no JVD; no pretibial edema Abdomen- slightly distended, + bowel sounds, soft, nontender Extremities- no cyanosis; no calf tenderness Neuro- alert, oriented Skin- warm & dry . Laboratory Results: Last 24 Hours Test 09/23/17 05:40 Sodium Level 139 mmol/L Potassium Level 4.0 mmol/L Chloride Level 108 mmol/L Carbon Dioxide Level 25 mmol/L Anion Gap 6.0 mmol/L Blood Urea Nitrogen 25 mg/dl Creatinine 1.13 mg/dl Est Creatinine Clear Calc Drug Dose 62.2 ml/min Estimated GFR () 72.8 Estimated GFR (Non- 62.8 BUN/Creatinine Ratio 22.1 Random Glucose 109 mg/dl Calcium Level 8.4 mg/dl Assessment & Plan S/P LUMBAR DECOMPRESSION AND FUSION Doing well postoperatively. CORONARY ARTERY DISEASE No anginal symptoms. Continue aspirin, metoprolol, nitrates, statin. PAROXYSMAL ATRIAL FIBRILLATION Currently in normal sinus rhythm. Continue aspirin and metoprolol. DYSLIPIDEMIA Continue simvastatin. BPH Gama catheter removed. Continue tamsulosin. VTE PROPHYLAXIS Per orthopedics protocol. DISPOSITION Patient anticipates being discharged home. Medical follow-up with Dr. Kelly. Thank you for this consultation. We will follow the patient with you during their hospital stay. You can reach a member of the [facility] Medicine Team 19/12 via pager @ [phone]. You can reach me via cell @ [phone]. . Current Inpatient Medications: Current Inpatient Medications Medications (Trade) Dose Ordered Sig/Rudy Route Start Time Stop Time Status Last Admin Dose Admin Promethazine HCl 12.5 mg/Sodium Chloride 50.5 ml @ 202 mls/hr Q6H PRN IV 09/21/17 13:00 10/21/17 12:59 Ondansetron HCl (Zofran Inj) 4 mg Q6H PRN IV 09/21/17 13:00 10/21/17 12:59 Metoclopramide HCl (Reglan Inj) 10 mg Q6H PRN IV 09/21/17 13:00 10/21/17 12:59 Lorazepam (Ativan Tab) 0.5 mg Q8H PRN PO 09/21/17 13:00 10/21/17 12:59 Lorazepam 0.5 mg/ Syringe 1 ml @ 1 mls/min Q8H PRN IV 09/21/17 13:00 10/21/17 12:59 Pneumococcal Polysaccharide Vaccine 1 ea PRN PRN N/A 09/21/17 13:00 10/21/17 12:59 Influenza Virus Vacc Triv Types A&B 1 ea PRN PRN N/A 09/21/17 13:00 10/21/17 12:59 Polyethylene (Miralax Powder Packet) 17 gm Q6 PO 09/23/17 06:00 10/23/17 05:59 09/23/17 05:32 17 GM Bisacodyl (Dulcolax Supp) 10 mg DAILY PRN TN 09/21/17 13:00 10/21/17 12:59 Magnesium Hydroxide (Milk Of Magnesia Susp) 30 ml DAILY PRN PO 09/21/17 13:00 10/21/17 12:59 09/23/17 15:01 30 ML Hydromorphone HCl (Dilaudid Inj) 0.5-1mg prn moder... Q3H PRN IV 09/22/17 06:00 10/06/17 05:59 Oxycodone HCl (Roxicodone Immediate Rel Tab) 5-10mg prn moderate to sev... Q4H PRN PO 09/22/17 06:00 10/06/17 05:59 09/23/17 15:01 5 MG Acetaminophen (Tylenol Tab) 1,000 mg Q8H PRN PO 09/21/17 13:00 10/21/17 12:59 Acetaminophen 100 ml @ 400 mls/hr Q8H PRN IV 09/21/17 13:00 10/21/17 12:59 Naloxone HCl (Narcan Inj) 0.1 mg Q5M PRN IV 09/21/17 13:00 10/21/17 12:59 Senna/Docusate Sodium (Senokot S Tab) 2 tab HS PO 09/21/17 21:00 10/21/17 20:59 09/22/17 21:20 2 TAB Sodium Biphosphate/ Sodium Phosphate (Fleet Enema) 132 ml ONE PRN [place] 09/21/17 13:00 10/21/17 12:59 09/23/17 17:56 132 ML Hydroxyzine HCl (Vistaril Tab) 25 mg Q8H PRN PO 09/21/17 13:00 10/21/17 12:59 Al Hydroxide/Mg Hydroxide (Maalox Susp) 30 ml Q6H PRN PO 09/21/17 13:00 10/21/17 12:59 Famotidine (Pepcid Tab) 20 mg Q12 PRN PO 09/21/17 13:00 10/21/17 12:59 Diphenhydramine HCl (Benadryl Cap) 25 mg Q6H PRN PO 09/21/17 13:00 10/21/17 12:59 Aspirin (Ecotrin Tab) 325 mg QAM PO 09/22/17 09:00 10/22/17 08:59 09/23/17 07:51 325 MG Isosorbide Mononitrate (Imdur Ext Rel Tab) 30 mg QAM PO 09/22/17 09:00 10/22/17 08:59 09/23/17 07:52 30 MG Metoprolol Tartrate (Lopressor Tab) 50 mg BIDM PO 09/21/17 17:45 10/21/17 17:44 09/23/17 08:10 50 MG Nitroglycerin (Nitrostat Tab) 0.4 mg Q5M PRN UT 09/21/17 13:00 10/21/17 12:59 Simvastatin (Zocor Tab) 10 mg QPM PO 09/21/17 21:00 10/21/17 20:59 09/22/17 21:19 10 MG Tamsulosin HCl (Flomax Cap) 0.4 mg QAM PO 09/22/17 09:00 5/27/18 08:59 09/23/17 07:51 0.4 MG Tolterodine Tartrate (Detrol LA Cap) 4 mg QPM PO 09/21/17 21:00 10/21/17 20:59 09/22/17 21:19 4 MG
[2017-09-23] MEDS: TOLTERODINE TARTRATE LA 4 MG CAPCR PO SCH (19:22)
[2017-09-23] MEDS: DOCUSATE SODIUM/SENNA 50/8.6MG TAB PO SCH (19:23)
[2017-09-23] MEDS: SIMVASTATIN 10 MG TAB PO SCH (19:23)
[2017-09-23 19:30] VITALS: O2SAT 96
[2017-09-23 23:06] VITALS: BP 154/78; PULSE 77; TEMP 37.1; O2SAT 96
[2017-09-24] MEDS: POLYETHYLENE (MIRALAX) 17 GM PACK PO SCH ×2 (05:46)
[2017-09-24] MEDS: OXYCODONE HCL IR 5 MG TAB (IMMEDIATE RELEASE) PO PRN ×2 (05:47→10:09)
[2017-09-24 07:05] VITALS: BP 142/77; PULSE 84; TEMP 36.7; O2SAT 91; O2SAT 94
--- NOTE | 2017-09-24 08:15 | Discharge Summary ---
Orthopedic Discharge Summary Admission Date/Reason Sep 21, 2017 at 09:30 Spinal Stenosis. Discharge Date/Disposition Sep 24, 2017 Home Diagnosis Principal Diagnosis: Lumbar spinal stenosis Procedure(s) Performed Lumbar decompression with instrument fusion L3-4, L4-5, L5-S1. [facility]conciliation New Medications: Oxycodone HCl (Oxycodone HCl) 5 Mg Tab 5-10 MG PO Q4H PRN for Moderate - severe pain, #60 TAB Continued Medications: Acetaminophen (Tylenol) 325 Mg Tab 325 MG PO QD PRN for Pain, TAB Isosorbide Mononitrate Ext Rel (Imdur Ext Rel) 30 Mg Ertab 30 MG PO QAM Metoprolol Tartrate (Lopressor) (Lopressor) 50 Mg Tab 50 MG PO BID, 0 Refills takes with breakfast and dinner Nitroglycerin (Nitrostat) 0.4 Mg Tab 0.4 MG UT PRN, 0 Refills Simvastatin (Zocor) 10 Mg Tab 10 MG PO QPM, 0 Refills Tamsulosin Hcl (Flomax) 0.4 Mg Cap 0.4 MG PO QAM, CAP Tolterodine Tartrate (Detrol LA) 4 Mg Capcr 1 CAP PO QPM for 90 Days, CAP 1 Refill Discontinued Medications: Aspirin Enteric Coated (Ecotrin Or Generic) 325 Mg Ectab 325 MG PO QAM, TAB will be stopping on 09/14/2017; but will start 81 mg Celecoxib (CeleBREX) 200 Mg Cap 1 CAP PO QAM for 30 Days, #30 CAP Naproxen (Aleve) 220 Mg Tab 1-2 TABS PO QD PRN for Pain, TAB Admission Physical Exam As per Admitting History & Physical. Hospital Course Patient has done quite well throughout his hospital course. It has been relatively uneventful. He has been making progress in physical therapy. Pain is controlled. Lab values have been stable. He is discharged home on postoperative day 3. Discharge Instructions Please refer to the electronic Patient Visit Report (Discharge Instructions) for additional information.
[2017-09-24] MEDS ORDERED: RXC5 PO (08:16)
--- NOTE | 2017-09-24 08:20 | Discharge Instructions ---
Discharge Instructions Date of Service Sep 24, 2017. Admission Reason for Admission: Spinal Stenosis Discharge Discharge Diagnosis / Problem: Lumbar spinal stenosis status post lumbar decompression with instrument fus Discharge Goals Goal(s): Decrease discomfort, Improve function, Increase independence Activity Recommendations Activity Limitations: per Instructions/Follow-up section Lifting Limitations: no more than 5 pounds Shower/Bathe: no limitations . Instructions / Follow-Up Instructions / Follow-Up ACTIVITY RECOMMENDATIONS: SELF CARE INSTRUCTIONS AFTER THORACIC/LUMBAR FUSIONS 1. You may walk to your tolerance. It is good exercise for your legs and back. Expect some back and intermittent leg aches and pains. 2. You may perform "counter-top" level activities (make a sandwich, donnell with a project, etc.). 3. No bending or lifting of more than 10 pounds or back twisting of any nature (roll like a log when turning in bed). 4. You may ride in a car for 20-30 minutes at a time. No driving until after your first visit with your doctor. 5. Frequent changes of position and restricting sitting to 30 minutes at a time will help limit the amount of back spasms and stiffness you may experience. 6. You may discontinue the use of ambulatory aids (cane, crutches, etc.) once your strength and confidence allow. 7. You may thread pulling machine attendant the shower and let water strike your incision when you arrive home at least once daily. Do not take a tub bath, sit in a hot tub or go into a swimming pool until after your first recheck in the office. SPECIAL CARE INSTRUCTIONS: VERY IMPORTANT TO READ AND REVIEW A. Your surgical incision has been closed with a cosmetic suture under the skin that will dissolve in about 6 weeks. In 14 days, you can use a pair of clean scissors and cut the suture that is left outside of the skin at the ends of your incision. 1. The small skin tapes can be removed 7 days after surgery if they have not fallen off by that point. 2. You may keep the wound open to air as much as possible to promote healing after post-op day number 5 unless told otherwise by your doctor. 3. If you think the wound looks like it is becoming infected (redness or worsening drainage) and/or you are experiencing fever, chill or worsening back pain and muscle spasms, contact the office so that we may evaluate you as soon as possible. B. Complications are uncommon, but please contact us if you have any signs or symptoms of: 1. wound infection (fever higher than 102.5 degrees F, redness, separation of wound, drainage, or increasing pain from the incision) 2. blood clots in legs (pain, swelling, redness and warmth in legs) 3. urinary tract infection (fever higher than 102.5 degrees F, burning upon urination or increased frequency of urination) 4. nerve problems (inability to walk on your toes or heels, numbness, loss of bowel or bladder control) 5. any other symptoms that concern you C. Please call the office at if you have any concerns or questions about your operation or recovery. D. No smoking! Smoking drastically decreases the chance of a solid fusion. E. Do not take any anti-inflammatory medications (Indocin, Advil, Motrin, Aspirin, Naprosyn, etc.) as these may inhibit the chance of a solid fusion. Tylenol is okay to take for pain. MANAGING PAIN AFTER SPINAL SURGERY 1. Narcotic medication is intended for short-term use and will be provided for surgical pain. Surgical pain usually lasts for a period of 4-6 weeks. Narcotic medication includes Percocet, Vicodin, Darvocet, Tylenol #3 or Lortab. 2. Longer-term pain is more appropriately treated with non-narcotic medication such as Tylenol ES. 3. Muscle spasm is not appropriately treated with narcotics. Muscle relaxers such as Soma, Flexeril or Skelaxin can be used along with Tylenol ES. 4. Remember that we all live with some "aches and pains". This is not unusual or uncommon after an injury or as we get older. a. Back pain is expected and may include muscle spasms for 4 to 6 weeks after surgery. The pain should gradually improve. If the pain worsens for no apparent reason, please contact the office. b. Intermittent leg pain may also be experienced and should not be concerned about unless it worsens for no apparent reason. If so, please contact the office. 5. We will provide appropriate medication within the normal guidelines of their prescribed use. We will also be very cautious and aware of potential abuse and extended duration of patients' medication needs. a. Pain medications are for your comfort and to assist with sleep and rest so that the tissue can heal. They are not provided in order to return to normal activity and should not be used through the day. To do so or worsening pain at night can result from ongoing tissue damage and development of tolerance to the prescribed medicine. 6. Please allow 2-3 days to process refills. Prescriptions will not be mailed but must be picked up at the office. FOLLOW UP VISIT: Keep your scheduled follow-up appointment. Any questions, please call the office at . Current Hospital Diet Patient's current hospital diet: Regular Diet Discharge Diet Recommended Diet: Regular Diet Procedures Procedures Performed: 1. Lumbar decompression medial facetectomies foraminotomies L2-3 L3-4 L4-5 L5-S1. #2 posterior spinal fusion L3-4 L4-5 L5-S1. #3 placement posterior segmental instrumentation L3-4 L4-5 L5-S1. #4 interbody fusion L5-S1. #5 placement titanium cage 14 x 26 mm at L5-S1. #6 placement of locally harvested morselized autograft in the posterior gutters. #7 placement InFUSE collagen sponge combined with mass graft in the posterior lateral gutters and ostial amp in the interbody space. Pending Studies Studies pending at discharge: no Medical Emergencies . Who to Call and When: Medical Emergencies: If at any time you feel your situation is an emergency, please call 911 immediately. . Non-Emergent Contact Non-Emergency issues call your: Primary Care Provider, Surgeon Call Non-Emergent contact if: temperature is above 101, your pain is not controlled, your pain is worsening, your pain is concerning you, wound has increased drainage, wound has increased redness . "Provider Documentation" section prepared by Leanne Menard. .
[2017-09-24] MEDS: ISOSORBIDE MONONITRATE 30 MG TABCR PO SCH (08:44)
[2017-09-24] MEDS: TAMSULOSIN HCL 0.4 MG CAP PO SCH (08:44)
[2017-09-24] MEDS: ASPIRIN 325 MG ECTAB PO SCH (08:45)
[2017-09-24] MEDS: METOPROLOL TARTRATE 50 MG TAB PO SCH (08:45)
[2017-09-24 10:36] VITALS: BP 142/77; PULSE 84; TEMP 36.7; O2SAT 94
== END 2017-09-24 11:15 | disposition home or self-care (01) | DRG 455 ==
LOC: C.ACU 07:29 → C.3E 09:30 → ENRESERV 13:52
PROVIDERS: ADMIT Orthopaedic Surgery Orthopaedic Surgery of the Spine; ATTEND Orthopaedic Surgery Orthopaedic Surgery of the Spine
PROC: 0SG1071 Fusion of 2 or more Lumbar Vertebral Joints with Autologous Tissue Substitute, Posterior Approach, Posterior Column, Open Approach (ICD-10-PCS; principal; 2017-09-21 09:45)
PROC: 0ST40ZZ Resection of Lumbosacral Disc, Open Approach (ICD-10-PCS; principal; 2017-09-21 09:45)
PROC: 0SG30AJ Fusion of Lumbosacral Joint with Interbody Fusion Device, Posterior Approach, Anterior Column, Open Approach (ICD-10-PCS; principal; 2017-09-21 09:45)
PROC: 01NB0ZZ Release Lumbar Nerve, Open Approach (ICD-10-PCS; principal; 2017-09-21 09:45)
PROC: 0SG3071 Fusion of Lumbosacral Joint with Autologous Tissue Substitute, Posterior Approach, Posterior Column, Open Approach (ICD-10-PCS; principal; 2017-09-21 09:45)
DX: M48.062 Spinal stenosis, lumbar region with neurogenic claudication (principal); M43.16 Spondylolisthesis, lumbar region; I11.9 Hypertensive heart disease without heart failure; I25.10 Atherosclerotic heart disease of native coronary artery without angina pectoris; E78.5 Hyperlipidemia, unspecified; I48.0 Paroxysmal atrial fibrillation; N40.0 Benign prostatic hyperplasia without lower urinary tract symptoms; Z79.899 Other long term (current) drug therapy; Z79.82 Long term (current) use of aspirin; Z96.641 Presence of right artificial hip joint; Z87.891 Personal history of nicotine dependence; Z82.49 Family history of ischemic heart disease and other diseases of the circulatory system

== ENCOUNTER 2020-07-28 04:58 | Inpatient (IN) ==
--- NOTE | 2020-06-29 13:54 | PAT Medication Instructions ---
Medication Instructions Date of Service June 29, 2020 Home Medications aspirin 325 mg PO QAM celecoxib [Celebrex] 100 mg PO BID isosorbide mononitrate 30 mg PO QAM metoprolol tartrate 50 mg PO HS naproxen sodium [Aleve] 220 mg PO BID PRN nitroglycerin 0.4 mg SUBLINGUAL UD PRN simvastatin 10 mg PO HS tamsulosin 0.4 mg PO HS Continue as directed nitroglycerin 0.4 mg SUBLINGUAL UD PRN ASK your surgeon for instructions celecoxib [Celebrex] 100 mg PO BID naproxen sodium [Aleve] 220 mg PO BID PRN ASK your prescriber and surgeon aspirin 325 mg PO QAM Take morning of surgery With a small sip of water, OTHERWISE NOTHING TO EAT OR DRINK AFTER MIDNIGHT: isosorbide mononitrate 30 mg PO QAM Take evening before surgery metoprolol tartrate 50 mg PO HS simvastatin 10 mg PO HS tamsulosin 0.4 mg PO HS Other Notes If you have any questions please call us at [phone] or [phone] or [phone] or [phone]
--- NOTE | 2020-07-01 10:40 | Anesthesiology Consultation ---
Date of Service July 01, 2020 Assessment & Plan (1) Encounter for pre-operative examination: - Per assessment on 07/01: Travel screen- Lives in [facility]. No known COVID- 19 positive contacts or current COVID-19 related symptoms. Patient reports he did receive covid vaccine #1, 2nd vaccine scheduled for 07/24 ). Surgeon arranging preop COVID testing (scheduled 07/22; [facility]).. Awaiting results. - S/P L3-S1 decompression/fusion (09/21/17): Grade view 1, MAC#3, ETT 8.0 at [facility] - Cardiology note (03/06/20): "Echo completed in the preop setting prior to planned orthopedic surgery. Please let patient know that his echo reveals overall normal LV function with EF 55%. Small wall motion abnormality is consistent with prior [facility] and CABG. Mildly dilated aortic root at 4.3. No significant valvular heart disease. No further cardiac testing warranted prior to planned orthopedic surgery. See office note for other perioperative recommendations." - ASA instructions per surgeon/cardiology (per patient, advised to change from ASA 325mg > 81mg one week prior to surgery) Chart Review Chart Review: Acceptable Risk for Surgery and Patient seen in Pre Admission Testing Teaching & Discussion Pre-Anesthesia Teaching/Discussion Notes: Instructed NPO after midnight before surgery,except medications with 15 cc of water. Medication instructions provided according to the PAT guidelines. History Surgery Operation Date: 07/28/20 11:05 Proposed Procedures p Left Anterior Total Hip Arthroplasty - Sandeep Gaytan DO Height/Weight Height: 5 ft 7 in Weight: 96.3 kg Allergies Allergy/AdvReac Type Severity Reaction Status Date / Time No Known Allergies Allergy Verified 02/19/20 14:18 Medications Home Medications Medication Instructions Recorded Confirmed Last Taken aspirin 325 mg PO QAM 02/19/20 06/23/20 Unknown celecoxib [Celebrex] 100 mg PO BID 02/19/20 06/23/20 Unknown isosorbide mononitrate 30 mg PO QAM 02/19/20 06/23/20 Unknown metoprolol tartrate 50 mg PO HS 02/19/20 06/23/20 Unknown naproxen sodium [Aleve] 220 mg PO BID PRN 02/19/20 06/23/20 Unknown nitroglycerin 0.4 mg SUBLINGUAL UD PRN 02/19/20 06/23/20 Unknown simvastatin 10 mg PO HS 02/19/20 06/23/20 Unknown tamsulosin 0.4 mg PO HS 02/19/20 06/23/20 Unknown Past Medical History Medical History CAD (coronary artery disease) s/p CABG x 5 (2008) Enlarged prostate Hiatal hernia History of atrial fibrillation post operative CABG (2008)/paroxysmal > no recent recurrence per cardiology History of bradycardia History of urinary urgency HTN (hypertension) Hyperlipemia Myocardial infarction 2006 Osteoarthritis Postoperative ileus h/o following CABG Exercise / Class Metabolic Activity III < 4 Walking/Shop/Light housework Past Family History Family History Other No family history of adverse response to anesthesia Past Surgical History Surgical History History of arthroscopic surgery of shoulder R/L History of back surgery L3-S1 decompression/fusion: 09/21/17: Grade view 1, MAC#3, ETT 8.0 at [facility] History of cardiac catheterization 2006- no stents, 2008 > CABG History of carpal tunnel surgery of left wrist History of colonoscopy History of right hip replacement History of tonsillectomy History of tooth extraction Hx of CABG 5 vessels (2008) Past Anesthesia History No Hx of Anesthesia Complications and No Family Hx of Anesthesia Complications History of PONV No Hx of PONV and No Hx of Motion Sickness Social History Smoking Status: Former smoker tobacco type: cigars Do You Dip or Chew Tobacco: No Smoking End Date: Quit (cigars) Hx Alcohol Use: Yes alcohol intake frequency: a few times a month Hx Substance Use: No substance use type: does not use Review of Systems Patient denies chest pain, shortness of breath, fever, chills, cough, wheezing, palpitations. Physical Exam Vital Signs VITALS BP 100/61 P 53 TEMP 98.3 SP02 97%RA RESP 16 PHYSICAL Full neck and c-spine range of motion. Full TMJ range of motion. TMD 3.5 finger breaths Mallampati Score 2 Dentition: upper partial Lungs: clear throughout to auscultation Cardiac: regular rate and rhythm, no murmurs noted Spine: normal Carotid arteries: negative bruit Extremities: no edema Testing Laboratory Results 07/01/20 11:09 07/01/20 11:09 PT 10.4 Seconds (9.0-12.0) 07/01/20 11:09 INR 1.0 (0.9-1.1) 07/01/20 11:09 APTT 25.2 Seconds (21.0-31.0) 07/01/20 11:09 Urine Color Dark Yellow 07/01/20 11:09 Urine Appearance Clear (Clear) 07/01/20 11:09 Urine pH 5.0 (4.5-7.5) 07/01/20 11:09 Ur Specific [place] 1.037 (1.000-1.030) H 07/01/20 11:09 Urine Protein Negative (Negative) 07/01/20 11:09 Urine Glucose (UA) Negative (Negative) 07/01/20 11:09 Urine Ketones Trace (Negative) H 07/01/20 11:09 Urine Nitrite Negative (Negative) 07/01/20 11:09 Ur Leukocyte Esterase Negative (Negative) 07/01/20 11:09 Blood Type O Positive 07/01/20 11:09 Antibody Screen NEGATIVE 07/01/20 11:09 06/15/20 HGBA1C 5.9% Electrocardiogram Date: 02/27/20 Normal sinus rhythm at [address] and T wave abnormality, consider inferior lateral ischemia. (No significant change compared to 11/04/2019 per waterproofer review, EKG was done at cardiology preop evaluation appointment) Chest X-Ray Date: 02/25/20 There are post sternotomy changes. The heart is normal in size. No pleural effusions. No pneumothorax. Increased markings within the right medial lung base remain stable. No new focal lung consolidations to suggest pneumonia. No evidence for pulmonary edema. IMPRESSION: No significant change compared to the prior study. No acute process. Echocardiogram Date: 02/27/20 LVEF 55 to 59%. Base posterior wall is hypokinetic. Basal inferior wall is thinned and akinetic. The regional LV wall motion is otherwise normal. Mild aortic valve sclerosis is present. Mildly enlarged aortic root. Mildly increased concentric LV wall thickness. Grade 1 diastolic dysfunction.
[2020-07-01 11:38] LABS: Basophils # (auto) 0.01 K/uL (0-0.2); Basophils % (auto) 0.1 %; Eosinophils # (auto) 0.38 K/uL (0-0.5); Eosinophils % (auto) 5.6 %; Hematocrit (blood only) 40.6 % (42-52); Hemoglobin 13.8 g/dL (14.0-18.0); Immature Granulocytes # (auto) 0.03 K/uL (0.00-0.02); Immature Granulocytes % (auto) 0.4 %; Lymphocytes # (auto) 1.65 K/uL (1.2-3.4); Lymphocytes % (auto) 24.2 %; Mean Corpuscular Hemoglobin 29.6 pg (25-34); Mean Corpuscular Volume 87.1 fL (80-100); Mean Platelet Volume 11.5 fL (7.4-10.4); Monocytes # (auto) 0.67 K/uL (0.11-0.59); Monocytes % (auto) 9.8 %; Neutrophils # (auto) 4.07 K/uL (1.4-6.5); Neutrophils % (auto) 59.9 %; Platelet Count 187 K/uL (130-400); RDW Coefficient of Variation 13.9 % (11.5-14.5); Red Blood Count 4.66 M/uL (4.7-6.1); White Blood Count 6.81 K/uL (4.8-10.8)
[2020-07-01 11:41] LABS: Appearance Urine Clear (Clear); Bilirubin Urine Negative (Negative); Blood Urine Negative (Negative); Color Urine Dark Yellow; Glucose Urine UA Negative (Negative); Ketones Urine Trace (Negative); Leukocyte Esterase Urine Negative (Negative); Nitrite Urine Negative (Negative); Protein Urine Negative (Negative); Specific Gravity Urine 1.037 (1.000-1.030); Urobilinogen Urine Negative (Negative)
[2020-07-01 11:51] LABS: Albumin Level 3.6 gm/dl (3.4-5.0); BUN Creatinine Ratio 26.2 (10-20); Calcium 9.4 mg/dl (8.5-10.1); Creatinine Clr Calc Pharmacy 64.9 ml/min; Est GFR (African American) 80.6; Est GFR (Non-African American) 69.6; Potassium 4.7 mmol/L (3.5-5.1)
[2020-07-01 11:54] LABS: Partial Thromboplastin Time 25.2 Seconds (21.0-31.0); Prothrombin Time 10.4 Seconds (9.0-12.0)
--- NOTE | 2020-07-26 13:39 | History & Physical Report ---
Date of Service July 28, 2020 Assessment & Plan (1) Degenerative joint disease of left hip: I have indicated the patient for left anterior total hip replacement. The risks, benefits and complications of surgery were explained to the patient which include but not limited to infection, acute blood loss, DVT/PE, injury to nerves, vessels, bone, soft tissue, arthrofibrosis, chronic pain, failure of the prosthesis, hip dislocation, leg length discrepancy, need for additional surgery, cardiac and pulmonary events and . The patient wished to proceed with surgery and informed consent was obtained at this time. We will plan for 81mg ASA BID post-operatively for DVT prophylaxis. Upon discharge the patient will be discharged home with home health services. Appropriate clearances by PCP and cardiology were obtained. History of Present Illness Chief Complaint: Left hip pain/DJD/AVN Primary Care Provider: Zarina Patel DO The patient is a 80 year old male who presents with complaints of severe left hip pain and DJD/AVN. The patient has failed outpatient conservative treatments to this point which included NSAIDs, IA corticosteroid injection and a home exercise/walking program. The patient's pain and limited function have progressed to the point where they severely hinder their activities of daily living and they no longer tolerate exercise programs. They are requesting to proceed with total hip replacement surgery. Allergies Allergy/AdvReac Type Severity Reaction Status Date / Time No Known Allergies Allergy Verified 02/19/20 14:18 Home Medications Medication Instructions Recorded Confirmed Type aspirin 325 mg PO QAM 02/19/20 07/28/20 History celecoxib [Celebrex] 100 mg PO BID 02/19/20 07/28/20 History isosorbide mononitrate 30 mg PO QAM 02/19/20 07/28/20 History metoprolol tartrate 50 mg PO HS 02/19/20 07/28/20 History naproxen sodium [Aleve] 220 mg PO BID PRN 02/19/20 07/28/20 History nitroglycerin 0.4 mg SUBLINGUAL UD PRN 02/19/20 07/28/20 History simvastatin 10 mg PO HS 02/19/20 07/28/20 History tamsulosin 0.4 mg PO HS 02/19/20 07/28/20 History Past Med/Surg History Medical History CAD (coronary artery disease) s/p CABG x 5 (2008) Enlarged prostate Hiatal hernia History of atrial fibrillation post operative CABG (2008)/paroxysmal > no recent recurrence per cardiology History of bradycardia History of urinary urgency HTN (hypertension) Hyperlipemia Myocardial infarction 2006 Osteoarthritis Postoperative ileus h/o following CABG Surgical History History of arthroscopic surgery of shoulder R/L History of back surgery L3-S1 decompression/fusion: 09/21/17: Grade view 1, MAC#3, ETT 8.0 at [facility] History of cardiac catheterization 2007- no stents, 2008 > CABG History of carpal tunnel surgery of left wrist History of colonoscopy History of right hip replacement History of tonsillectomy History of tooth extraction Hx of CABG 5 vessels (2008) Family History Other No family history of adverse response to anesthesia Social History Smoking Status: Former smoker Smoking End Date: Quit (cigars); Second Hand Exposure: No; Do You Dip or Chew Tobacco: No; Hx Alcohol Use: Yes Hx Substance Use: No Preferred Language: Sudanese Communication Ability: Effective 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 Constitutional: WD/WN, vitals as above Eyes: PERRL, conjunctivae normal, anicteric sclerae ENMT: external ear and nose normal, oropharynx normal Neck: trachea midline, no thyromegaly Respiratory: normal respiratory effort, lungs clear to auscultation Cardiovascular: RRR, no murmur, no edema Gastrointestinal (Abdomen): normal bowel sounds, soft, nontender, no hepatosplenomegaly Musculoskeletal: no cyanosis or clubbing, extremities motor strength 5/5 Skin: no rashes, warm and dry Neurologic: patellar DTR's 2+ bilat, sensation intact Psychiatric: A+Ox3, euthymic affect Lymphatic: no cervical or axillary lymphadenopathy Results & Data Results & Data ([facility]) Diagnostic Findings Multiple views of the hip demonstrates severe DJD/ AVN, cortical collapse with complete loss of the joint space. +osteophytes, +sclerosis, +subchondral cysts. Pre Admission Testing Addendum Laboratory Results 07/01/20 11:09 07/01/20 11:09 PT 10.4 Seconds (9.0-12.0) 07/01/20 11:09 INR 1.0 (0.9-1.1) 07/01/20 11:09 APTT 25.2 Seconds (21.0-31.0) 07/01/20 11:09 Urine Color Dark Yellow 07/01/20 11:09 Urine Appearance Clear (Clear) 07/01/20 11:09 Urine pH 5.0 (4.5-7.5) 07/01/20 11:09 Ur Specific [place] 1.037 (1.000-1.030) H 07/01/20 11:09 Urine Protein Negative (Negative) 07/01/20 11:09 Urine Glucose (UA) Negative (Negative) 07/01/20 11:09 Urine Ketones Trace (Negative) H 07/01/20 11:09 Urine Nitrite Negative (Negative) 07/01/20 11:09 Ur Leukocyte Esterase Negative (Negative) 07/01/20 11:09 Blood Type O Positive 07/01/20 11:09 Antibody Screen NEGATIVE 07/01/20 11:09
[2020-07-28] MEDS ORDERED: ROPIVACAINE 0.5% HCL/PF 150 MG, BUPIVACAINE 0.75% MPF 20 ML, EPINEPHrine 30MG/30ML (OR ... INSTIL SCH (06:00)
[2020-07-28] MEDS ORDERED: LR 500ML BOLUS, THEN 15ML/HR IV SCH (06:00)
[2020-07-28] MEDS ORDERED: TRANEXAMIC ACID 1,000 MG **IV Pre-op IV SCH (06:00)
[2020-07-28] MEDS ORDERED: METOCLOPRAMIDE HCL 10 MG TABLET PO SCH (06:00)
[2020-07-28] MEDS ORDERED: GABAPENTIN 300 MG CAP PO SCH (06:00)
[2020-07-28] MEDS ORDERED: ACETAMINOPHEN 500 MG TAB PO SCH (06:00)
[2020-07-28] MEDS ORDERED: TRANEXAMIC ACID 1,000 MG **IV Intra-op IV SCH (06:00)
[2020-07-28] MEDS ORDERED: oxyCODONE HCL 10 MG TABCR (OxyCONTIN) PO SCH (06:00)
[2020-07-28] MEDS ORDERED: CeleBREX 200 MG CAP PO SCH (06:00)
[2020-07-28] MEDS ORDERED: ceFAZolin 2000MG 2,000 MG/15 ML SYR IV SCH (06:00)
[2020-07-28] MEDS ORDERED: dexAMETHasone 4 MG TAB PO SCH (06:00)
[2020-07-28] MEDS ORDERED: FAMOTIDINE 20 MG TAB PO SCH (06:00)
[2020-07-28] MEDS ORDERED: BUPIVACAINE 0.5 % 5 MG/1 ML PF 10ML VIAL ONE (06:15)
[2020-07-28] MEDS ORDERED: fentaNYL citrate 100 MCG/2 ML VIAL ONE (06:33)
[2020-07-28] MEDS ORDERED: MIDAZOLAM HCL 1 MG/ML 2ML VIAL ONE (06:33)
--- NOTE | 2020-07-28 07:02 | History & Physical Bridge Note ---
Date of Service July 28, 2020 History & Physical Bridge Note I have examined the patient, reviewed the History & Physical and in the interval since the performance of the History & Physical I have noted the following changes of clinical significance: no changes noted
[2020-07-28] MEDS ORDERED: BACITRACIN INJ 50,000 UNIT VIAL ONE (07:07)
[2020-07-28] MEDS ORDERED: ORTHO JOINT ANESTHETIC ONE (07:07)
[2020-07-28] MEDS ORDERED: LIDOCAINE 2% 2 ML VIAL/AMP(20MG/ML) INFIL ONE (07:36)
[2020-07-28] MEDS ORDERED: PROPOFOL IV EMULSION 10 MG/ML 20 ML VIAL IV ONE ×2 (07:36→08:55)
[2020-07-28] MEDS ORDERED: ePHEDrine sulfate 50 MG/ML SYR ONE (07:36)
[2020-07-28] MEDS ORDERED: ONDANSETRON INJ 2 MG/ML 2 ML VIAL ONE (07:51)
[2020-07-28] MEDS ORDERED: ePHEDrine sulfate 50 MG/ML AMP IV PRN (08:54)
[2020-07-28] MEDS ORDERED: ATROPINE SULFATE 0.1 MG/ML 10ML SYR IV PRN (08:54)
--- NOTE | 2020-07-28 09:17 | Post Operative Brief Note ---
Immediate Post Op Note v1 Date of Surgery July 28, 2020 Pre & Post Diagnosis Operation Date: 07/28/20 07:15 Pre-Op Diagnosis: Osteoarthritis, Left Hip Post-Op Diagnosis: Osteoarthritis, Left Hip I identified the patient and participated in the time-out.: Yes Procedure Operation Date: 07/28/20 07:15 Actual Procedures p Left Anterior Total Hip Arthroplasty(Left) - Sandeep Gaytan DO Surgeon Sandeep Gaytan DO Porcelain Enamel Laborer Jose Frederick Estimated Blood Loss 165 Findings Consistent with Post-Op Diagnosis Fluids 1100 cc LR Specimens femoral head Anesthesia Type Spinal MAC Complications none Disposition Disposition: Recovery Room Overlapping Procedure I was present for: the critical portions of procedure. I was immediately available: during the entire case. Back up surgeon: was not required during procedure.
--- NOTE | 2020-07-28 09:19 | Operative Report ---
Post Operative Report Pre & Post Diagnosis Operation Date: 07/28/20 07:15 Pre-Op Diagnosis: Osteoarthritis, Left Hip Post-Op Diagnosis: Osteoarthritis, Left Hip I identified the patient and participated in the time-out.: Yes Procedure Operation Date: 07/28/20 07:15 Actual Procedures p Left Anterior Total Hip Arthroplasty(Left) - Sandeep Gaytan DO Surgeon Sandeep Gaytan DO Zipper Sewing Machine Operator Jose Frederick Estimated Blood Loss 165 Findings Consistent with Post-Op Diagnosis Fluids 1100 cc LR Specimens femoral head Anesthesia Type Spinal MAC Complications none Disposition Disposition: Recovery Room Indications The patient is a 80-year-old male who presents with severe progressive left hip DJD/AVN who has failed outpatient conservative treatments. I indicated the patient for a anterior total hip replacement and the risks and benefits were explained in detail which include but not limited to infection, bleeding, blood clot, damage to surrounding bone, nerves, vessels, soft tissue, hip dislocation, failure of the prosthesis, leg length discrepancy, need for additional surgery and . The patient agreed to proceed with replacement of the hip and informed consent was obtained. Appropriate clearances were obtained. Description of Procedure COMPONENTS USED: Chav[employer] NephTorrent LoadingSystemsology hip system: Acetabulum size 56, femur size 8 standard offset, femoral head 36+4, liner 56x36, acetabular screw 25 mm x 1. DESCRIPTION OF PROCEDURE: Following satisfactory spinal anesthesia, the patient was placed supine on the OR table. The right leg was placed in the well leg stokes and the left leg in the traction device. The left leg was prepared with ChloraPrep and draped sterilely. A surgical timeout was performed, patient identified and site adelso verified. Appropriate antibiotics were given. A standard anterior approach in the interval between the sartorius and tensor muscles was performed. Dissection was carried down through subcutaneous tissues. Electrocautery was utilized for hemostasis. Circumflex femoral vessels were identified, tied and ligated. The anterior capsular fat pad was removed and the capsulotomy was performed revealing the arthritic femoral neck and head. A femoral neck cut was made with reciprocating saw and the bone fragments removed. The acetabular self-retraining retractor was placed. Acetabular reaming was completed under fluoroscopic guidance, a 56 shell was impacted into an anatomic position and secured with a acetabular screw. Local anesthetic was placed and following irrigation, the polyethylene liner was placed. The femur was placed into position of external rotation, extension and adduction. Femoral canal was prepared up to the size 8 standard offset. Trial reduction with a 36+4 neck length head showed good soft tissue tension, leg lengths restored, and good fit and fill of the proximal canal using fluoroscopic landmarks. The hip was dislocated. The trial component was removed. The final implant was placed. The hip was irrigated with sterile saline solution and reduced. A Betadine soak was performed. After 3 minutes, the hip was once more irrigated with copious sterile saline solution with bacitracin. Therese-incisional soft tissue was injected utilizing [place] [employer] which includes a combination of Ropivicaine 0.5% 150mg, Bupivicaine 0.5%/Epinephrine 1:200,000 30ml, Toradol 30mg, Dexamethasone 4mg, Ketamine 10mg, Clonidine 100mcg and NSS 30ml solution. The capsule was then closed with 1-0 Vicryl interrupted figure of eight sutures. The fascia was closed with a running suture of #1 Vicryl, the subcutaneous tissues with 2-0 Vicryl and the skin was closed with angela. A sterile dry dressing was applied which included bertha incisional VAC. The patient tolerated the procedure well and was transported to PACU in stable condition. Due to the complex nature of the procedure, the entire surgery was performed with the operational assistance of Jose Frederick PA-C. The title i assistant, under direct supervision, was involved in the actual performance of all aspects of the surgical procedure including patient positioning, hemostasis, tissue retraction, instrument management and wound closure. I attest to the content of the Intraoperative Record and any orders documented therein. Any exceptions are noted below.
--- NOTE | 2020-07-28 09:37 | Fluoroscopy Report ---
FL hip LT 1V CLINICAL HISTORY: Left anterior total hip arthroplasty COMPARISON STUDY: MRI of the pelvis February 18, 2020. FLUOROSCOPY TIME: 48 seconds. FLUOROSCOPIC IMAGES: 2 FINDINGS: Fluoroscopy was provided during total left hip arthroplasty. Hardware is intact. There are no unexpected radiopaque foreign bodies. Acetabular screw is noted. Right hip arthroplasty is inciden tally noted as well as surgical hardware within the lumbosacral spine. IMPRESSION: Fluoroscopy provided during total left hip arthroplasty . ACT 112: Negative or not required by law. Electronically signed by: Nicolás Sunshine M.D. 07/28/2020 9:35 AM
--- NOTE | 2020-07-28 10:24 | Anesthesiology Progress Note ---
Date of Service July 28, 2020 Anesthesia Post Procedure Vital Signs Vital Signs: Temp Pulse Pulse Resp BP Pulse Ox 07/28/20 10:10 36.7 C 79 17 125/68 96 07/28/20 10:00 75 18 125/58 L 96 07/28/20 09:50 80 17 125/58 L 99 07/28/20 09:42 36.5 C 79 15 123/60 100 07/28/20 05:20 36.9 C 64 20 149/80 H 98 Pain Intensity Left Hip: Pain Intensity: 3 Transfer of Care Handoff Completed per policy Notes Mental Status: alert / awake / arousable Patient Amnestic to Procedure: Yes Nausea / Vomiting: adequately controlled Pain: adequately controlled Airway Patency, RR, SpO2: stable & adequate BP & HR: stable & adequate Hydration State: stable & adequate Anesthetic Complications: no major complications apparent
[2020-07-28] MEDS ORDERED: HYDROmorphone INJ 0.5 MG/0.5 ML SYR IV PRN (10:43)
[2020-07-28] MEDS ORDERED: ONDANSETRON INJ 2 MG/ML 2 ML VIAL IV PRN (10:43)
[2020-07-28] MEDS ORDERED: NALOXONE HCL 0.4 MG/1 ML VIAL/CARP IV PRN (10:43)
[2020-07-28] MEDS ORDERED: NITROGLYCERIN SL 0.4 MG/TAB TAB SL PRN (10:43)
[2020-07-28] MEDS ORDERED: MAGNESIUM HYDROXIDE SUSP 30 ML UDC PO PRN (10:43)
[2020-07-28] MEDS ORDERED: oxyCODONE HCL IR 5 MG TAB (IMMEDIATE RELEASE) PO PRN (10:43)
[2020-07-28] MEDS ORDERED: METOCLOPRAMIDE HCL INJ 5 MG/ML 2 ML VIAL IV PRN (10:43)
[2020-07-28] MEDS ORDERED: bisacodyL 10 MG SUPP PR PRN (10:43)
--- NOTE | 2020-07-28 10:43 | XRay Report ---
XR hip 1V LT w pelvis CLINICAL HISTORY: Postoperative evaluation. COMPARISON: MRI of the pelvis February 18, 2020. FINDINGS: Alignment of the total left hip arthroplasty is anatomic. There is no periprosthetic fract ure or unexpected radiopaque foreign body. There are skin angela. Right hip arthroplasty and postope rative findings within the lumbosacral spine are incidentally noted. IMPRESSION: Expected findings following total left hip arthroplasty. ACT 112: Negative or not required by law. Electronically signed by: Nicolás Sunshine M.D. 07/28/2020 10:42 AM
[2020-07-28] MEDS: SODIUM CHLORIDE 0.9% 1000ML 1,000 ML IV SCH ×2 (12:05→22:26)
[2020-07-28] MEDS: KETOROLAC TROMETHAMINE 15 MG/ML VIAL IV SCH ×3 (12:05→22:31)
[2020-07-28] MEDS: ACETAMINOPHEN 500 MG TAB PO SCH ×2 (13:53→20:54)
[2020-07-28] MEDS: ceFAZolin 2000MG 2,000 MG/15 ML SYR IV SCH ×2 (16:51→22:27)
--- NOTE | 2020-07-28 19:32 | Orthopedic Progress Note ---
Date of Service July 28, 2020 Assessment & Plan (1) Degenerative joint disease of left hip: s/p L anterior BELKIS -ancef x 24 -DVT ppx: SCDs, TEDs, 81mg ASA BID -WBAT LLE -PT/OT -PO XR demonstrates a well aligned well fixed total hip prosthesis without fracture/dislocation -am labs -DC planning Admission and Anticipated Discharge Date Admission Date: July 28, 2020 Subjective Post Operative Progress Note Patient seen sitting up in bed, comfortable, denies complaints, pain well controlled, no acute issues. Review of Systems Review of Systems: All systems reviewed & are unremarkable except as noted in HPI & below Constitutional: as per Subjective / HPI Physical Exam Physical Exam: LLE NVSI +EHL/FHL/TA/GS SILT grossly, +2 DP pulse, compartments soft NT, dressing cdi. Constitutional: WD/WN, vitals as above Results & Data ([facility]) Vital Signs (Past 12 Hours) Vital Signs Temp Pulse Pulse Resp BP Pulse Ox 07/28/20 14:51 36.4 C L 68 16 118/62 94 07/28/20 13:55 83 16 121/71 96 07/28/20 12:21 37.1 C 71 16 127/64 95 07/28/20 11:30 36.4 C L 73 16 114/64 96 07/28/20 10:30 36.4 C L 73 16 132/68 96 07/28/20 10:10 36.7 C 79 17 125/68 96 07/28/20 10:00 75 18 125/58 L 96 07/28/20 09:50 80 17 125/58 L 99 07/28/20 09:42 36.5 C 79 15 123/60 100
[2020-07-28] MEDS: DOCUSATE SODIUM 100 MG CAP PO SCH (20:55)
[2020-07-28] MEDS ORDERED: TAMSULOSIN HCL 0.4 MG CAP PO SCH (21:00)
[2020-07-28] MEDS ORDERED: METOPROLOL TARTRATE 50 MG TAB PO SCH (21:00)
[2020-07-28] MEDS ORDERED: SIMVASTATIN 10 MG TAB PO SCH (21:00)
[2020-07-28] MEDS ORDERED: SENNA 8.6 MG TAB PO SCH (21:00)
[2020-07-29] MEDS: KETOROLAC TROMETHAMINE 15 MG/ML VIAL IV SCH (05:26)
[2020-07-29] MEDS: ACETAMINOPHEN 500 MG TAB PO SCH ×2 (05:27→14:53)
[2020-07-29 06:34] LABS: Hematocrit (blood only) 37.6 % (42-52); Hemoglobin 12.7 g/dL (14.0-18.0); Mean Corpuscular Hemoglobin 29.3 pg (25-34); Mean Corpuscular Hgb Conc 33.8 g/dL (32-36); Mean Corpuscular Volume 86.6 fL (80-100); Mean Platelet Volume 11.4 fL (7.4-10.4); Platelet Count 186 K/uL (130-400); RDW Coefficient of Variation 13.4 % (11.5-14.5); Red Blood Count 4.34 M/uL (4.7-6.1); White Blood Count 14.95 K/uL (4.8-10.8)
[2020-07-29 07:01] LABS: Basophils # (auto) 0.01 K/uL (0-0.2); Basophils % (auto) 0.1 %; Eosinophils # (auto) 0.01 K/uL (0-0.5); Eosinophils % (auto) 0.1 %; Immature Granulocytes # (auto) 0.06 K/uL (0.00-0.02); Immature Granulocytes % (auto) 0.4 %; Lymphocytes # (auto) 1.04 K/uL (1.2-3.4); Monocytes # (auto) 1.33 K/uL (0.11-0.59); Monocytes % (auto) 8.9 %; Neutrophils % (auto) 83.5 %; Ovalocytes 1+; Tear Drop Cells 1+
[2020-07-29 07:06] LABS: BUN Creatinine Ratio 28.8 (10-20); Calcium 8.8 mg/dl (8.5-10.1); Creatinine Clr Calc Pharmacy 56.4 ml/min; Est GFR (African American) 68.3; Est GFR (Non-African American) 58.9; Potassium 4.7 mmol/L (3.5-5.1)
[2020-07-29] MEDS: DOCUSATE SODIUM 100 MG CAP PO SCH (07:37)
[2020-07-29] MEDS ORDERED: MULTIVITAMIN TAB PO SCH (09:00)
[2020-07-29] MEDS ORDERED: ISOSORBIDE MONO EXTENDED REL 30 MG TABCR PO SCH (09:00)
[2020-07-29] MEDS ORDERED: ASPIRIN 81 MG ECTAB PO SCH (09:00)
--- NOTE | 2020-07-29 09:51 | Orthopedic Progress Note ---
Date of Service July 29, 2020 Assessment & Plan (1) Degenerative joint disease of left hip: s/p L anterior BELKIS POD#1 -ancef x 24 -DVT ppx: SCDs, TEDs, 81mg ASA BID -WBAT LLE -PT/OT -PO XR demonstrates a well aligned well fixed total hip prosthesis without fracture/dislocation -am labs - as above, hgb 12.7 -DC planning - home with Admission and Anticipated Discharge Date Admission Date: July 28, 2020 Subjective Post Operative Progress Note Patient seen sitting up in bed, comfortable, denies complaints, pain well controlled, no acute issues. Denies F/C/N/V/SOB/CP. Review of Systems Review of Systems: All systems reviewed & are unremarkable except as noted in HPI & below Constitutional: as per Subjective / HPI Physical Exam Physical Exam: LLE NVSI +EHL/FHL/TA/GS SILT grossly, +2 DP pulse, compartments soft NT, dressing cdi. Constitutional: WD/WN, vitals as above Results & Data ([facility]) Vital Signs (Past 12 Hours) Vital Signs Temp Pulse Resp BP Pulse Ox 07/29/20 07:30 36.9 C 60 16 134/74 96 07/29/20 03:32 36.8 C 62 14 154/54 H 96 07/28/20 22:09 37.0 C 68 14 118/60 95 Laboratory Results 07/29/20 07/29/20 Range/Units 06:15 06:15 WBC 14.95 H (4.8-10.8) K/uL RBC 4.34 L (4.7-6.1) M/uL Hgb 12.7 L (14.0-18.0) g/dL Hct 37.6 L (42-52) % MCV 86.6 (80-100) fL MCH 29.3 (25-34) pg MCHC 33.8 (32-36) g/dL RDW Std Deviation 43.0 (36.4-46.3) fL RDW Coeff of Nely 13.4 (11.5-14.5) % Plt Count 186 (130-400) K/uL MPV 11.4 H (7.4-10.4) fL Immature Gran % (Auto) 0.4 % Neut % (Auto) 83.5 % Lymph % (Auto) 7.0 % [place] % (Auto) 8.9 % Eos % (Auto) 0.1 % Baso % (Auto) 0.1 % Neut # (Auto) 12.50 H (1.4-6.5) K/uL Lymph # (Auto) 1.04 L (1.2-3.4) K/uL [place] # (Auto) 1.33 H (0.11-0.59) K/uL Eos # (Auto) 0.01 (0-0.5) K/uL Baso # (Auto) 0.01 (0-0.2) K/uL Immature Gran # (Auto) 0.06 H (0.00-0.02) K/uL Tear Drop Cells 1+ Ovalocytes 1+ Sodium 142 (136-145) mmol/L Potassium 4.7 (3.5-5.1) mmol/L Chloride 111 H (98-107) mmol/L Carbon Dioxide 24 (21-32) mmol/L Anion Gap 6.0 (3-11) BUN 34 H (7-18) mg/dl Creatinine 1.17 (0.6-1.4) mg/dl Est Cr Clr Drug Dosing 56.4 ml/min Est GFR ( Amer) 68.3 Est GFR (Non-Af Amer) 58.9 BUN/Creatinine Ratio 28.8 H (10-20) Glucose 139 H (70-99) mg/dl Calcium 8.8 (8.5-10.1) mg/dl
[2020-07-29] MEDS ORDERED: CeleBREX 200 MG CAP PO SCH (12:00)
--- NOTE | 2020-07-29 21:06 | Discharge Summary ---
Date of Service July 29, 2020 Admission HPI Per Admitting Provider The patient is a 80 year old male who presents with complaints of severe left hip pain and DJD/AVN. The patient has failed outpatient conservative treatments to this point which included NSAIDs, IA corticosteroid injection and a home exercise/walking program. The patient's pain and limited function have progressed to the point where they severely hinder their activities of daily living and they no longer tolerate exercise programs. They are requesting to proceed with total hip replacement surgery. Principal Diagnosis Left anterior total hip replacement -Left hip DJD Discharge Exam LLE NVSI +EHL/FHL/TA/GS SILT grossly, +2 DP pulse, compartments soft NT, dressing cdi. Constitutional WD/WN, vitals as above Discharge Data Allergies Allergy/AdvReac Type Severity Reaction Status Date / Time No Known Allergies Allergy Verified 02/19/20 14:18 Consultations 07/29/20 08:00 Consult Case Management - Discharge Planning Routine Procedures Performed Operation Date: 07/28/20 07:15 Actual Procedures p Left Anterior Total Hip Arthroplasty(Left) - Sandeep Gaytan DO Ordered Studies 07/28/20 FL fluoroscopy <1hr Routine FL hip LT 1V Routine Hospital Course (1) Degenerative joint disease of left hip: The patient is a 80 -year-old male who presents with long standing history of severe left hip DJD/AVN and failed outpatient conservative treatments. The patient's symptoms have progressed to the point where it has been difficult to perform even normal activities of daily living. I indicated the patient for a left anterior total hip arthroplasty, the risks, benefits and complications of the procedure include but not limited to infection, bleeding, damage to bone, nerves, vessels, surrounding soft tissue, may develop blood clots, loss of function, leg length discrepancy, dislocation, failure of the components, loosening of the components, the need for additional surgery and . The patient wished to proceed with surgery at this time and informed consent was obtained. Hospital Course: On 07/28/20 the patient was taken to the operating room, adequate anesthesia administered and underwent a left anterior total hip arthroplasty. The patient tolerated the procedure well and was taken to the PACU in stable condition. Post-operatively the patient was started on a DVT ppx medication and given appropriate IV antibiotics. Consults were placed to physical therapy, occupational therapy and case management. On POD#1, the patient did well overnight and their pain was well controlled. Labs were drawn and the Hgb was 12.7. The patient progressed well with PT. Dressings were changed at this time and the incision was clean, dry and intact. The patients hospital stay was relatively uneventful and they were deemed stable by the orthopedic team and consultants to be discharged home with HH on 07/29/20. Discharge Instructions: Upon discharge the patient may weight bear as tolerates through their operative extremity. They were instructed to keep the incision clean and dry at all times. The patient may shower but should not submerge the incision, avoid bathing, pools and hot tubs. The patient was given a script for pain medication and should take as instructed. The patient was given a script for DVT ppx 81mg ASA BID and should take as directed. The patient was instructed to not drive or travel for long distances until cleared to do so. If the patient develops any symptoms of fevers, chills, nausea, vomiting, increased redness, swelling, pain or drainage from the surgical site, they should notify the office and/or proceed to the nearest emergency room. The patient should follow up in 10-14 days after surgery for their routine post-operative follow-up appointment and should call the office, to confirm the date and time. s/p L anterior BELKIS POD#1 -ancef x 24 -DVT ppx: SCDs, TEDs, 81mg ASA BID -WBAT LLE -PT/OT -PO XR demonstrates a well aligned well fixed total hip prosthesis without fracture/dislocation -am labs - as above, hgb 12.7 -DC planning - home with Total Time Total Time Spent Total Time Spent (In Minutes): 30 Discharge Plan Discharge Items Patient Disposition: Home - Home Health Services Reason For Visit: Osteoarthritis, Left Hip Discharge Diagnosis: Left anterior total hip replacement -Left hip DJD/AVN Condition on Discharge: Good Activity: Per Instructions section Lifting: Wait until after follow-up appointment Bathing: Keep incision dry Bathing Comment: No bathing, pools or hot tubs. Sexual Activity: Wait until after follow-up appointment Exercise/Sports: Wait until after follow-up appointment Driving/Machine Use: No driving. Weightbearing: Full weightbearing Non-emergency contact: Primary Care Provider and Surgeon Call non-emergency contact if: you have any medication questions, your symptoms worsen, your pain is not controlled, your pain is worsening, your pain is unusual for you, your pain is concerning for you, you have a fever, your temperature is above 101, your wound has increased redness, your wound has increased drainage and your wound pain has increased Follow-up/Referrals: Zarina Patel DO [Primary Care Provider] - Diet: Regular Addtl Attending Provider Instructions: ACTIVITY RECOMMENDATIONS: SELF CARE INSTRUCTIONS AFTER TOTAL HIP REPLACEMENT : Direct Anterior Approach Until the incision and soft tissues around your hip have healed, there is a possibility that the hip prosthesis could dislocate. A. Hip flexion ( Up & Down out of chair or steps ) may be difficult. This is normal. B. Numbness in front of the thigh is also normal for a few weeks. C. Use hand rails when walking on stairs. D. Wear low heeled shoes with non-slip soles. E. Be sure that your floors are free of things that could trip you - throw rugs, electrical cords, small objects. Avoid wet and waxed floors, especially with crutches and canes. F. Try to walk several times a day with rest periods between. G. Continue with all the exercises taught to you in the hospital. Again, make walking a part of your daily routine. SPECIAL CARE INSTRUCTIONS: VERY IMPORTANT TO READ AND REVIEW A. You may still be at risk for phlebitis and blood clots. 1. Wear surgical stockings (AUGUSTINA hose) for 2 weeks after surgery to improve circulation and reduce swelling. 2. Take Aspirin 81mg twice daily for 4 weeks or as directed by your doctor. This is your blood thinner. 3. High risk patients may be prescribed a stronger blood thinner if necessary. 4. If you are on Coumadin normally, your family doctor/director federal should monitor your blood work. Expect a phone call the day of or the day after bloodwork is drawn to adjust your dosage. B. You must take antibiotics before having dental work, bladder, bowel and other surgery. Your doctor will provide you with a permanent card to carry describing precautions. C. Call [facility] if you have a fever, redness or swelling around the incision, cloudy drainage from incision, or sudden increase in pain in your hip, not relieved by your regular pain medication. D. Please call the office at if you have any concerns or questions about your operation or recovery. * YOU MAY SHOWER, NO TUB BATHS UNTIL CLEARED BY YOUR DOCTOR. - Keep an extra close eye on the top portion of your incision. Be sure to ke ep clean & dry. * WEAR AUGUSTINA HOSE 20 HOURS PER DAY FOR 2 WEEKS. * YOU MAY PROGRESS FROM A WALKER, TO A CANE, TO INDEPENDENT AT YOUR OWN PACE. * MOST PATIENTS WILL HAVE HOME NURSING FOR THERAPY. IF YOU DECIDE TO DO OUTPATIENT PHYSICAL THERAPY, PLEASE SCHEDULE THIS 3 TIMES PER WEEK. *DAREN incisional vac is a special dressing covering your incision. This dressing provides a sterile dry environment while you are healing. The dressing is to be left in place for 7 days post-operatively. Your home nurse or surgeon will remove. If you develop any redness or blisters or have any questions notify your surgeon immediately. FOLLOW UP VISIT: If appointment is not already scheduled: Please call [facility] to make a follow-up appointment for 2 weeks after your surgery at . Pending Studies at Discharge: No Stand-Alone Forms: My [facility], Opioid Pain Management, Smoking Cessation Medications and DC Order Prescriptions: New acetaminophen 500 mg Tablet 1,000 mg PO Q8 PRN (Reason: fever or pain) Qty: 90 RF: 0 aspirin 81 mg Tablet,Delayed Release (Dr/Ec) 81 mg PO BID Qty: 56 RF: 0 celecoxib [Celebrex] 200 mg Capsule 200 mg PO BID PRN (Reason: pain/inflammation) Qty: 28 RF: 0 oxycodone 5 mg Tablet 5 mg PO Q6H MDD 4 PRN (Reason: pain) Qty: 30 RF: 0 sennosides [Senokot] 8.6 mg Tablet 17.2 mg PO HS PRN (Reason: constipation) Qty: 28 RF: 0 Continued isosorbide mononitrate 30 mg Tablet Extended Release 24 Hr 30 mg PO QAM RF: 0 simvastatin 10 mg Tablet 10 mg PO HS RF: 0 tamsulosin 0.4 mg Capsule 0.4 mg PO HS RF: 0 metoprolol tartrate 50 mg Tablet 50 mg PO HS RF: 0 nitroglycerin 0.4 mg Tablet, Sublingual 0.4 mg sublingual UD PRN (Reason: Chest Pain) RF: 0 Discontinued aspirin 325 mg Tablet 325 mg PO QAM RF: 0 celecoxib [Celebrex] 100 mg Capsule 100 mg PO BID RF: 0 naproxen sodium [Aleve] 220 mg Capsule 220 mg PO BID PRN (Reason: Pain) RF: 0 Discharge Orders: Discharge Order (Routine); Ordered 07/29/20 Ordered By: Jose Levine/Other Patient Handouts: DVT Post Op Prevention Admission Data Admit Date/Time: 07/28/20 09:48 Attending Provider: Sandeep Gaytan Admit Provider: Sandeep Gaytan Primary Care Provider: Zarina Patel Other Providers: [facility]Home [facility] Other Interventions: Discharge Summary Assessment (RN) Last Done: 07/29/20 13:08
== END 2020-07-29 15:51 | disposition home health service (06) ==
LOC: 3E 04:58 → ASU 04:58 → OBSVTOIN 09:48

== ENCOUNTER 2021-07-19 16:19 | Inpatient (IN) ==
[2021-07-19 17:35] LABS: Basophils # (auto) 0.01 K/uL (0-0.2); Basophils % (auto) 0.1 %; Eosinophils # (auto) 0.01 K/uL (0-0.5); Eosinophils % (auto) 0.1 %; Hematocrit (blood only) 43.4 % (42-52); Hemoglobin 14.4 g/dL (14.0-18.0); Immature Granulocytes # (auto) 0.05 K/uL (0.00-0.02); Immature Granulocytes % (auto) 0.4 %; Lymphocytes # (auto) 0.42 K/uL (1.2-3.4); Lymphocytes % (auto) 3.7 %; Mean Corpuscular Hemoglobin 29.3 pg (25-34); Mean Corpuscular Hgb Conc 33.2 g/dL (32-36); Mean Corpuscular Volume 88.2 fL (80-100); Mean Platelet Volume 12.3 fL (7.4-10.4); Monocytes # (auto) 0.52 K/uL (0.11-0.59); Monocytes % (auto) 4.6 %; Neutrophils # (auto) 10.34 K/uL (1.4-6.5); Neutrophils % (auto) 91.1 %; Platelet Count 118 K/uL (130-400); Platelet Estimate Decreased (Normal); RDW Standard Deviation 45.3 fL (36.4-46.3); Red Blood Count 4.92 M/uL (4.7-6.1); White Blood Count 11.35 K/uL (4.8-10.8)
[2021-07-19 17:38] LABS: Albumin Globulin Ratio 1.8 (0.9-2); Albumin Level 4.1 gm/dl (3.4-5.0); Bilirubin,Total 1.2 mg/dl (0.2-1.0); Calcium 9.7 mg/dl (8.5-10.1); Creatinine Clr Calc Pharmacy 45.3 ml/min; Est GFR (African American) 52.3 ml/min; Est GFR (Non-African American) 45.2 ml/min; Globulin 2.3 gm/dl (2.5-4.0); Potassium 3.8 mmol/L (3.5-5.1); Total Protein 6.4 gm/dl (6.0-8.3)
[2021-07-19 17:42] LABS: Troponin I 0.58 ng/ml (0-0.04)
[2021-07-19] MEDS ORDERED: SODIUM CHLORIDE 0.9% 1000ML 1,000 ML IV ONE ×2 (18:06→18:54)
[2021-07-19] MEDS ORDERED: CEFEPIME 2,000 MG/20 ML VIAL IV STA (18:07)
--- NOTE | 2021-07-19 18:24 | Emergency Department Note ---
History of Present Illness General Chief complaint: Weakness Stated complaint: SEPTIC, KIDNEY INFECTION, WEAKNESS, FEVER Time Seen by Provider: 07/19/21 18:03 History of Present Illness 81-year-old male presents to the ED with a chief complaint of weakness. The patient states that he developed hematuria on Monday, 2 days ago. Earlier today he went to his doctor's office and was started on Cipro for a UTI. The patient states that he was at home today and was very weak. He states that he is weak all over. He slid off of a chair onto the floor cannot get up. He was brought in for evaluation. No chest pains or shortness of breath. No upper respiratory symptoms. No nausea or vomiting. No additional complaints at this time. He did take 1 dose of Cipro earlier today. Home Medications Medication Instructions Recorded Confirmed Type isosorbide mononitrate 30 mg 30 mg PO QAM 02/19/20 07/19/21 History tablet,extended release 24 hr metoprolol tartrate 50 mg tablet 50 mg PO Q12 02/19/20 07/19/21 History nitroglycerin 0.4 mg sublingual 0.4 mg SUBLINGUAL UD PRN 02/19/20 07/19/21 History tablet simvastatin 10 mg tablet 10 mg PO HS 02/19/20 07/19/21 History tamsulosin 0.4 mg capsule 0.4 mg PO HS 02/19/20 07/19/21 History acetaminophen 325 mg tablet 650 mg PO Q4 PRN 07/19/21 07/19/21 History (Tylenol) aspirin 325 mg tablet 325 mg PO DAILY 07/19/21 07/19/21 History celecoxib 100 mg capsule 200 mg PO DAILY 07/19/21 07/19/21 History ciprofloxacin HCl 500 mg tablet 500 mg PO AMHS 07/19/21 07/19/21 History mirabegron 25 mg tablet,extended 25 mg PO DAILY 07/19/21 07/19/21 History release 24 hr (Myrbetriq) [id number]-hpovq acid-vit 1 tab PO DAILY 07/19/21 07/19/21 History K-lycop 400 mcg-20 mcg-370 mcg tablet (One-A-Day Men's 50 Plus) Allergies Allergy/AdvReac Type Severity Reaction Status Date / Time No Known Allergies Allergy Verified 02/19/20 14:18 Past Med/Surg History Medical History CAD (coronary artery disease) s/p CABG x 5 (2008) Enlarged prostate Hiatal hernia History of atrial fibrillation post operative CABG (2008)/paroxysmal > no recent recurrence per cardiology History of bradycardia History of urinary urgency HTN (hypertension) Hyperlipemia Myocardial infarction 2006 Osteoarthritis Postoperative ileus h/o following CABG Surgical History History of arthroscopic surgery of shoulder R/L History of back surgery L3-S1 decompression/fusion: 09/21/17: Grade view 1, MAC#3, ETT 8.0 at [facility] History of cardiac catheterization 2006- no stents, 2008 > CABG History of carpal tunnel surgery of left wrist History of colonoscopy History of right hip replacement History of tonsillectomy History of tooth extraction Hx of CABG 5 vessels (2008) Family History (Updated 07/19/21 @ 18:36 by Mary Power PA-C) Other Heart disease Hypertension No family history of adverse response to anesthesia Social History (Updated 07/19/21 @ 18:37 by Mary Power PA-C) Smoking Status: Former smoker Years Smoked: 30; Smoking End Date: 1977; Second Hand Exposure: No; Hx Alcohol Use: Yes Hx Substance Use: No Preferred Language: Welsh Communication Ability: Effective Skid Adzer Required: No Beliefs That Will Affect Care: None marital status: Current Living Situation: Spouse Feels Safe at Home: Yes Assistive Devices: Walker Review of Systems A total of 10 systems reviewed and were otherwise negative Physical Exam Vital Signs Vital Signs - 24 hr 07/19/21 16:40 07/19/21 18:12 07/19/21 18:20 Temperature 37.4 C Temperature Source Temporal Artery Scan Pulse Rate 109 H 104 H 103 H Pulse Rate [Finger] Pulse Rate from SpO2 Sensor 103 H 103 H Respiratory Rate 18 24 27 H Respiratory Effort / Characteristics Non-Labored Respiratory Depth Normal Respiratory Pattern Regular Blood Pressure 103/57 L 92/64 L Blood Pressure [Right Arm] Blood Pressure Mean 72 73 Blood Pressure Mean [Right Arm] Pulse Oximetry 95 96 96 Oxygen Delivery Method Room Air Sepsis Recent Fever Within 48 Hours Yes Sepsis New/Unexplained Change in Mental Status No Sepsis Action Taken by Nursing No Action Required 07/19/21 18:30 07/19/21 19:16 Temperature Temperature Source Pulse Rate 105 H Pulse Rate [Finger] 103 H Pulse Rate from SpO2 Sensor 105 H Respiratory Rate 21 18 Respiratory Effort / Characteristics Non-Labored Respiratory Depth Normal Respiratory Pattern Blood Pressure 101/57 L Blood Pressure [Right Arm] 90/56 L Blood Pressure Mean 71 Blood Pressure Mean [Right Arm] 67 Pulse Oximetry 95 95 Oxygen Delivery Method Room Air Sepsis Recent Fever Within 48 Hours Sepsis New/Unexplained Change in Mental Status Sepsis Action Taken by Nursing CONSTITUTIONAL/VITAL SIGNS: Reviewed / noted above. GENERAL: Non-toxic in appearance. INTEGUMENTARY: Warm, dry, and [place]. HEAD: Normocephalic. EYES: without scleral icterus or trauma. ENT/OROPHARYNX: clear and moist. LYMPHADENOPATHY/NECK: Is supple without lymphadenopathy or meningismus. RESPIRATORY: Clear to auscultation bilaterally. No increased work of breathing. CARDIOVASCULAR: Regular rate and rhythm. GI/ABDOMEN: Soft and nontender. No organomegaly or pulsatile mass. EXTREMITIES: Warm and well perfused. BACK: No CVA tenderness. NEUROLOGICAL: Intact without focal deficits. PSYCHIATRIC: normal affect. MUSCULOSKELETAL: Normally developed with good muscle tone. TRIAGE NURSING DOCUMENTATION REVIEWED. Course Administered Medications Discontinued Medications Sodium Chloride (Nss 1000ml) 1,000 mls @ 999 mls/hr IV .Q1H1M ONE Stop: 07/19/21 19:06 Last Admin: 07/19/21 18:23 Dose: 999 mls/hr Documented by: [id number] Cefepime HCl (Maxipime) 2,000 mg in 20 mls @ 5 mls/min IV NOW STA; Protocol Stop: 07/19/21 18:10 Last Admin: 07/19/21 18:23 Dose: 5 mls/min Documented by: [id number] Medical Decision Making Differential Diagnosis Differential includes acute coronary syndrome, myocardial infarction, CVA, TIA, anemia, infection, pneumonia, UTI, pyelonephritis, poor nutrition, dehydration, electrolyte disturbance,hypoglycemia. Medical Records Attestation: I reviewed the patient's medical records. Home Medications Current Medication List: was personally reviewed by me Laboratory Data Attestation: I reviewed the patient's lab results. Result diagrams: 07/19/21 17:08 07/19/21 17:08 Lab Results 07/19/21 07/19/21 07/19/21 Range/Units 17:08 17:08 17:08 WBC 11.35 H (4.8-10.8) K/uL RBC 4.92 (4.7-6.1) M/uL Hgb 14.4 (14.0-18.0) g/dL Hct 43.4 (42-52) % MCV 88.2 (80-100) fL MCH 29.3 (25-34) pg MCHC 33.2 (32-36) g/dL RDW Std Deviation 45.3 (36.4-46.3) fL RDW Coeff of Nely 14.0 (11.5-14.5) % Plt Count 118 L (130-400) K/uL MPV 12.3 H (7.4-10.4) fL Immature Gran % (Auto) 0.4 % Neut % (Auto) 91.1 % Lymph % (Auto) 3.7 % Hubbard % (Auto) 4.6 % Eos % (Auto) 0.1 % Baso % (Auto) 0.1 % Neut # (Auto) 10.34 H (1.4-6.5) K/uL Lymph # (Auto) 0.42 L (1.2-3.4) K/uL Hubbard # (Auto) 0.52 (0.11-0.59) K/uL Eos # (Auto) 0.01 (0-0.5) K/uL Baso # (Auto) 0.01 (0-0.2) K/uL Immature Gran # (Auto) 0.05 H (0.00-0.02) K/uL Platelet Estimate Decreased L (Normal) Sodium 141 (136-145) mmol/L Potassium 3.8 (3.5-5.1) mmol/L Chloride 110 H (98-107) mmol/L Carbon Dioxide 23 (21-32) mmol/L Anion Gap 8 (3-11) BUN 29 H (6-23) mg/dl Creatinine 1.45 H (0.6-1.4) mg/dl Est Cr Clr Drug Dosing 45.3 ml/min Est GFR ( Amer) 52.3 ml/min Est GFR (Non-Af Amer) 45.2 ml/min BUN/Creatinine Ratio 20.0 (10-20) Glucose 151 H (70-99(Fasting)) mg/dl Lactate (0.4-2.0) mmol/L Calcium 9.7 (8.5-10.1) mg/dl Total Bilirubin 1.2 H (0.2-1.0) mg/dl AST 26 (13-39) U/L ALT 22 (7-52) U/L Alkaline Phosphatase 79 (34-104) U/L Troponin I 0.58 H* (0-0.04) ng/ml Total Protein 6.4 (6.0-8.3) gm/dl Albumin 4.1 (3.4-5.0) gm/dl Globulin 2.3 L (2.5-4.0) gm/dl Albumin/Globulin Ratio 1.8 (0.9-2) TSH 0.355 (0.300-4.500) uIu/ml Urine Color Urine Appearance (Clear) Urine pH (4.5-7.5) Ur Specific [place] (1.000-1.030) Urine Protein (Negative) Urine Glucose (UA) (Negative) Urine Ketones (Negative) Urine Blood (Negative) Urine Nitrite (Negative) Urine Bilirubin (Negative) Urine Urobilinogen (Negative) Ur Leukocyte Esterase (Negative) Urine WBC (Auto) (0-5) /hpf Urine RBC (Auto) (0-4) /hpf U Hyaline Cast (Auto) (0-5) /lpf U Epithel Cells (Auto) (0-5) /lpf Urine Bacteria (Auto) (Negative) SARS-CoV-2, RNA, NAAT (NEGATIVE) 07/19/21 07/19/21 07/19/21 Range/Units 17:08 18:08 Unknown WBC (4.8-10.8) K/uL RBC (4.7-6.1) M/uL Hgb (14.0-18.0) g/dL Hct (42-52) % MCV (80-100) fL MCH (25-34) pg MCHC (32-36) g/dL RDW Std Deviation (36.4-46.3) fL RDW Coeff of Nely (11.5-14.5) % Plt Count (130-400) K/uL MPV (7.4-10.4) fL Immature Gran % (Auto) % Neut % (Auto) % Lymph % (Auto) % Hubbard % (Auto) % Eos % (Auto) % Baso % (Auto) % Neut # (Auto) (1.4-6.5) K/uL Lymph # (Auto) (1.2-3.4) K/uL Hubbard # (Auto) (0.11-0.59) K/uL Eos # (Auto) (0-0.5) K/uL Baso # (Auto) (0-0.2) K/uL Immature Gran # (Auto) (0.00-0.02) K/uL Platelet Estimate (Normal) Sodium (136-145) mmol/L Potassium (3.5-5.1) mmol/L Chloride (98-107) mmol/L Carbon Dioxide (21-32) mmol/L Anion Gap (3-11) BUN (6-23) mg/dl Creatinine (0.6-1.4) mg/dl Est Cr Clr Drug Dosing ml/min Est GFR ( Amer) ml/min Est GFR (Non-Af Amer) ml/min BUN/Creatinine Ratio (10-20) Glucose (70-99(Fasting)) mg/dl Lactate 2.8 H* (0.4-2.0) mmol/L Calcium (8.5-10.1) mg/dl Total Bilirubin (0.2-1.0) mg/dl AST (13-39) U/L ALT (7-52) U/L Alkaline Phosphatase (34-104) U/L Troponin I (0-0.04) ng/ml Total Protein (6.0-8.3) gm/dl Albumin (3.4-5.0) gm/dl Globulin (2.5-4.0) gm/dl Albumin/Globulin Ratio (0.9-2) TSH (0.300-4.500) uIu/ml Urine Color [place] Urine Appearance Turbid A (Clear) Urine pH 6.0 (4.5-7.5) Ur Specific [place] 1.027 (1.000-1.030) Urine Protein 3+ H (Negative) Urine Glucose (UA) Negative (Negative) Urine Ketones Trace H (Negative) Urine Blood 3+ H (Negative) Urine Nitrite Positive A (Negative) Urine Bilirubin 1+ H (Negative) Urine Urobilinogen Negative (Negative) Ur Leukocyte Esterase 2+ H (Negative) Urine WBC (Auto) >30 H (0-5) /hpf Urine RBC (Auto) >30 H (0-4) /hpf U Hyaline Cast (Auto) 10-30 H (0-5) /lpf U Epithel Cells (Auto) 10-20 H (0-5) /lpf Urine Bacteria (Auto) Negative (Negative) SARS-CoV-2, RNA, NAAT NEGATIVE (NEGATIVE) Imaging Data My Impression: Chest x-ray: Per my interpretation there is no pneumonia or pneumothorax. No acute process. Radiologist's Impression: Chest X-Ray 07/19/21 18:07 XR chest 1V portable HISTORY: fever COMPARISON: Chest 02/25/2020. FINDINGS: The cardiac silhouette is mildly enlarged. No focal lung consolidations to suggest pneumonia. No evidence for pulmonary edema. There are poststernotomy changes. No pleural effusions. No pneumothorax. IMPRESSION: 1. No focal lung consolidations to suggest pneumonia. 2. Mild cardiomegaly. ACT 112: Negative or not required by law. Electronically signed by: Ac Henderson M.D. 07/19/2021 6:52 PM ECG Data Attestation: I personally reviewed and interpreted this ECG as follows: Additional Comments: Twelve-lead EKG: Per my interpretation there is a normal sinus rhythm at a rate of 98. There are ST depressions T wave inversions laterally that appear to be worse compared to July 15, 2020. No PVCs. Normal QTC peer MDM Narrative 81-year-old male presents with recent hematuria starting 2 days ago followed by urinalysis today that showed a UTI and started on Cipro and had 1 dose today. Became very weak and slid off the chair and was unable to get up. Denies chest pains. No shortness of breath. No upper respiratory symptoms. His vital signs reveal mild tachycardia and a low normal blood pressure. He is afebrile. Oxygen saturations are normal. Exam did not reveal any significant abnormalities. Twelve-lead EKG shows a normal sinus rhythm but has some T wave inversions laterally that appear to be new or worse compared to 1 year ago. His white blood cell count is 11.35. Platelet count is 118. BUN is 29 and creatinine is 1.45. Baseline creatinine is about 1.1. Lactic acid level is elevated at 2.8. Troponin is elevated at 0.58. Covid test was negative. Chest x-ray did not show acute process. Urinalysis suggest UTI. The patient was given a liter of normal saline IV. He was also given IV cefepime. He will be seen by the hospitalist for further inpatient evaluation and care. He does take aspirin daily. He also is on isosorbide. He has had 5 bypass surgeries in the past. Currently no chest pains or shortness of breath. Impression & Plan Cystitis, Weakness, Elevated troponin, Acute kidney injury Discharge Plan Visit Data Chief Complaint: Weakness Stated Complaint: SEPTIC, KIDNEY INFECTION, WEAKNESS, FEVER ED Provider: Calixto Burgess Discharge Problem: Cystitis, Weakness, Elevated troponin, Acute kidney injury Patient Disposition: Being Evaluated by Hospitalist Forms Stand Alone Forms: My [facility] Prescriptions Prescriptions: No Action isosorbide mononitrate 30 mg Tablet Extended Release 24 Hr 30 mg PO QAM RF: 0 simvastatin 10 mg Tablet 10 mg PO HS RF: 0 tamsulosin 0.4 mg Capsule 0.4 mg PO HS RF: 0 metoprolol tartrate 50 mg Tablet 50 mg PO Q12 RF: 0 nitroglycerin 0.4 mg Tablet, Sublingual 0.4 mg sublingual UD PRN (Reason: Chest Pain) RF: 0 Myrbetriq 25 mg tablet extended release 24 hr 25 mg PO DAILY RF: 0 celecoxib 100 mg capsule 200 mg PO DAILY RF: 0 aspirin 325 mg Tablet 325 mg PO DAILY RF: 0 acetaminophen [Tylenol] 325 mg Tablet 650 mg PO Q4 PRN (Reason: arthritis pain) RF: 0 ciprofloxacin HCl 500 mg tablet 500 mg PO AMHS RF: 0 One-A-Day Men's 50 Plus 400-20-370 mcg Tablet 1 tab PO DAILY RF: 0 Referrals Referrals: PCP,NO [Primary Care Provider] -
--- NOTE | 2021-07-19 18:33 | History & Physical Report ---
Date of Service July 19, 2021 Assessment & Plan (1) Sepsis: (2) Complicated UTI (urinary tract infection): (3) Hematuria: (4) Generalized weakness: Plan: This is an 81yo M with a PMH of CAD s/p CABG, BPH, paroxysmal A Fib, DLD, prediabetes and other medical problems listed below who presents with urinary symptoms and was found to have sepsis 2/2 complicated UTI and acute kidney injury. Hematuria x 2 days. Febrile and tachypneic at PCP visit earlier today with abnormal UA - felt worse after first dose of Cipro and presented to ED for further evaluation Hypotensive in ED at 90/56 after 1 L NSS - giving additional 1 L now, continue IV fluids Continue empiric Cefepime Follow urine and blood culture Renal ultrasound to evaluate for stones, obstruction Initial lactate 2.8 - continue to trend (5) Acute kidney injury: Plan: Cr 1.45 (baseline ~1.0-1.1) In setting of UTI Giving IV fluids, ultrasound for obstruction (6) Elevated troponin: Plan: Initial troponin 0.58, ECG with TWI non-specific ST changes that are present previously but possibly worse No chest pain Trend troponin, telemetry, TTE in AM Continue Lopressor, statin, aspirin Consider cardiology consult if develops CP, trop is up-trending Repeat ECG in AM (7) CAD (coronary artery disease): Plan: H/o CABG in 2001. Transition from aspirin 325 to 81mg given low platelets, hematuria (8) Paroxysmal atrial fibrillation: Plan: Continue Lopressor (9) BPH (benign prostatic hyperplasia): Plan: Continue Flomax, follows with [facility] urology at [facility] DVT Ppx: SCDs given thrombocytopenia and hematuria Code status: FULL PCP: MOY Garza ([place]) Dispo: Admitted to [facility] tele Patient seen in collaboration with Dr. Green. Please see addendum. History of Present Illness Chief Complaint: urinary sx, generalized weakness Primary Care Provider: NO PCP This is an 81yo M with a PMH of CAD s/p CABG, BPH, paroxysmal A Fib, DLD, prediabetes and other medical problems listed below who presents with urinary symptoms. Seen by PCP in [place] earlier today for blood in urine for the past 2 days. Also endorsing dysuria and increased urinary urgency. History of BPH and follows with urology at [facility]. Due for cystoscopy in August. Found to be febrile in clinic at 38.7 with abnormal UA. Urine culture ordered and patient prescribed Cipro for 10 d course. Once he returned home and took first dose of Cipro, he felt significantly more weak and fell. Son was there to help him up. Denies head trauma or LOC. Ambulates with a walker at baseline. Had 1 episode of nausea and vomiting. Also had episode of bowel incontinence. Presented to ED for further evaluation. Currently patient endorsing pressure in suprapubic region. No fever, chills, lightheadedness, CP, SOB, nausea, vomiting, abdominal pain, diarrhea or constipation. Does take aspirin 324mg daily for history of CABG back in 2001. Also takes 200mg of celecoxib for history of back pain. Allergies Allergy/AdvReac Type Severity Reaction Status Date / Time No Known Allergies Allergy Verified 02/19/20 14:18 Home Medications Medication Instructions Recorded Confirmed Type isosorbide mononitrate 30 mg 30 mg PO QAM 02/19/20 07/19/21 History tablet,extended release 24 hr metoprolol tartrate 50 mg tablet 50 mg PO Q12 02/19/20 07/19/21 History nitroglycerin 0.4 mg sublingual 0.4 mg SUBLINGUAL UD PRN 02/19/20 07/19/21 History tablet simvastatin 10 mg tablet 10 mg PO HS 02/19/20 07/19/21 History tamsulosin 0.4 mg capsule 0.4 mg PO HS 02/19/20 07/19/21 History acetaminophen 325 mg tablet 650 mg PO Q4 PRN 07/19/21 07/19/21 History (Tylenol) aspirin 325 mg tablet 325 mg PO DAILY 07/19/21 07/19/21 History celecoxib 100 mg capsule 200 mg PO DAILY 07/19/21 07/19/21 History ciprofloxacin HCl 500 mg tablet 500 mg PO AMHS 07/19/21 07/19/21 History mirabegron 25 mg tablet,extended 25 mg PO DAILY 07/19/21 07/19/21 History release 24 hr (Myrbetriq) cpmwjgsefgyu-afq-exfgj acid-vit 1 tab PO DAILY 07/19/21 07/19/21 History K-lycop 400 mcg-20 mcg-370 mcg tablet (One-A-Day Men's 50 Plus) Past Med/Surg History Medical History CAD (coronary artery disease) s/p CABG x 5 (2008) Enlarged prostate Hiatal hernia History of atrial fibrillation post operative CABG (2008)/paroxysmal > no recent recurrence per cardiology History of bradycardia History of urinary urgency HTN (hypertension) Hyperlipemia Myocardial infarction 2006 Osteoarthritis Postoperative ileus h/o following CABG Surgical History History of arthroscopic surgery of shoulder R/L History of back surgery L3-S1 decompression/fusion: 09/21/17: Grade view 1, MAC#3, ETT 8.0 at [facility] History of cardiac catheterization 2006- no stents, 2008 > CABG History of carpal tunnel surgery of left wrist History of colonoscopy History of right hip replacement History of tonsillectomy History of tooth extraction Hx of CABG 5 vessels (2008) Family History (Updated 07/19/21 @ 18:36 by Mary Power PA-C) Other Heart disease Hypertension No family history of adverse response to anesthesia Social History (Updated 07/19/21 @ 18:37 by Mary Power PA-C) Smoking Status: Former smoker Years Smoked: 30; Smoking End Date: 1977; Second Hand Exposure: No; Hx Alcohol Use: Yes Hx Substance Use: No Preferred Language: Maltese Communication Ability: Effective Sales Representative Facility Services Required: No Beliefs That Will Affect Care: None marital status: Current Living Situation: Spouse Feels Safe at Home: Yes Assistive Devices: Walker Review of Systems Review of Systems: At least ten systems reviewed and negative except as noted in the HPI. Physical Exam Physical Exam: Please see Dr. Green's addendum for physical exam. Results & Data Results & Data ([facility]) Vital Signs (Past 12 Hours) Vital Signs Temp Pulse Resp BP Pulse Ox 07/19/21 16:40 37.4 C 109 H 18 103/57 L 95 Laboratory Results Short CBC 07/19/21 Range/Units 17:08 WBC 11.35 H (4.8-10.8) K/uL Hgb 14.4 (14.0-18.0) g/dL Hct 43.4 (42-52) % Plt Count 118 L (130-400) K/uL BMP 07/19/21 17:08 Sodium 141 Potassium 3.8 Chloride 110 H Carbon Dioxide 23 BUN 29 H Creatinine 1.45 H Glucose 151 H Calcium 9.7 Cardiac Enzymes 07/19/21 Range/Units 17:08 Troponin I 0.58 H* (0-0.04) ng/ml Liver Function 07/19/21 Range/Units 17:08 Total Bilirubin 1.2 H (0.2-1.0) mg/dl AST 26 (13-39) U/L ALT 22 (7-52) U/L Alkaline Phosphatase 79 (34-104) U/L Albumin 4.1 (3.4-5.0) gm/dl Diagnostic Findings Chest X-Ray 07/19/21 18:07 XR chest 1V portable HISTORY: fever COMPARISON: Chest 02/25/2020. FINDINGS: The cardiac silhouette is mildly enlarged. No focal lung co nsolidations to suggest pneumonia. No evidence for pulmonary edema. There are poststernotomy changes. No pleural effusions. No pneumothorax. IMPRESSION: 1. No focal lung consolidations to suggest pneumonia. 2. Mild cardiomegaly. ACT 112: Negative or not required by law. Electronically signed by: Ac Henderson M.D. 07/19/2021 6:52 PM Supervising Physician Co-Signing Physician Notes And is an 81-year-old male with history of coronary artery disease, paroxysmal atrial fibrillation, BPH, hyperlipidemia and other medical problems presents with history of dysuria, intermittent hematuria, fever, chills since 2 days duration. Patient was started on ciprofloxacin as outpatient for possible UTI. Patient did not tolerate ciprofloxacin resulting in nausea, vomiting. Patient also states having suprapubic pressure kind of sensation. Patient states having significant generalized weakness resulting in ambulatory dysfunction and fall prior to arrival. Patient presents to ED for further evaluation. Patient had low blood pressure while in ED mildly tachycardic. White blood cell count 11 point three 4K, creatinine elevated at 1.4, lactate elevated at 2.8, troponin elevated 0.58. Chest X-ray showed no focal lung consolidation to suggest pneumonia, mild cardiomegaly noted. EKG showed chronic T wave inversion in inferolateral leads, nonspecific ST changes. Patient denies any chest pain, shortness of breath. Physical Exam: Vitals signs as noted above General Appearance:Moderately built and nourished, no apparent distress Head: normocephalic, Atraumatic Eyes: normal inspection, EOMI Neck: supple, Trachea midline Respiratory/Chest: Normal breath sounds, CTA Cardiovascular: S1, S2, No murmur, + Tachycardia Abdomen/GI:Soft, mild suprapubic tender, Bowel sounds present Extremities/Musculoskeletal:normal inspection, no edema Neurologic/Psych:AAOX3, grossly no focal neurological deficits Skin: normal color, warm Severe sepsis Meets SIRS criteria UTI THEO Hematuria Lactic acidosis Agree with IV fluids, IV cefepime Blood, urine cultures obtained Follow-up outpatient urine culture Consider urology evaluation if recurrence of hematuria Avoid anticoagulants Aspirin changed to 81 mg daily Mild troponin elevation Abnormal EKG Trend cardiac enzymes, check resting echo Repeat EKG in the morning Consider cardiology evaluation if needed I personally reviewed the record. Patient is interviewed and examined at bedside. Patient's care is coordinated with Mary Power PA-C. Please refer to the documentation above for details of patient's presentation and for discussion of other issues.
[2021-07-19 18:50] LABS: Appearance Urine Turbid (Clear); Bacteria Urine Automated Negative (Negative); Blood Urine 3+ (Negative); Color Urine Orange; Glucose Urine UA Negative (Negative); Ketones Urine Trace (Negative); Leukocyte Esterase Urine 2+ (Negative); Nitrite Urine Positive (Negative); Protein Urine 3+ (Negative); RBC Urine Automated >30 /hpf (0-4); Specific Gravity Urine 1.027 (1.000-1.030); Urobilinogen Urine Negative (Negative); WBC Urine Automated >30 /hpf (0-5)
--- NOTE | 2021-07-19 18:54 | XRay Report ---
XR chest 1V portable HISTORY: fever COMPARISON: Chest 02/25/2020. FINDINGS: The cardiac silhouette is mildly enlarged. No focal lung consolidations to suggest pneumoni a. No evidence for pulmonary edema. There are poststernotomy changes. No pleural effusions. No pneumo thorax. IMPRESSION: 1. No focal lung consolidations to suggest pneumonia. 2. Mild cardiomegaly. ACT 112: Negative or not required by law. Electronically signed by: Ac Henderson M.D. 07/19/2021 6:52 PM
[2021-07-19 19:08] LABS: Bilirubin Urine 1+ (Negative)
[2021-07-19] MEDS ORDERED: CONSULT PHARMACY STA (19:36)
[2021-07-19] MEDS ORDERED: SIMVASTATIN 10 MG TAB PO SCH (21:00)
[2021-07-19] MEDS: TAMSULOSIN HCL 0.4 MG CAP PO SCH (21:18)
[2021-07-19] MEDS: METOPROLOL TARTRATE 50 MG TAB PO SCH (21:18)
[2021-07-19] MEDS ORDERED: traMADol HCL 50 MG TABLET PO PRN (22:51)
[2021-07-19] MEDS ORDERED: ONDANSETRON INJ 2 MG/ML 2 ML VIAL IV PRN (22:51)
[2021-07-19] MEDS ORDERED: POLYETHYLENE (MIRALAX) 17 GM PACK PO PRN (22:51)
[2021-07-19] MEDS: SODIUM CHLORIDE 0.9% 1000ML 1,000 ML IV SCH (23:59)
[2021-07-20] MEDS ORDERED: Nursing to Pharmacy Communication SCH (03:00)
--- NOTE | 2021-07-20 07:18 | Ultrasound Report ---
US renal/blad retro comp HISTORY: 81 years-old Male hematuria acute hematuria COMPARISON: None TECHNIQUE: Multiple real-time sonographic images of the kidneys and urinary bladder were obtained ass essing grayscale appearance and color flow FINDINGS: The right kidney measures 12.9 x 5.6 x 5.2 cm. There is a 5 mm calculus noted within the inferior paresh e right kidney. No hydronephrosis or suspicious mass lesion. The left kidney measures 10.7 x 5.4 x 4.4 cm and demonstrates mild hydronephrosis. No left-sided chaitanya l calculi or suspicious mass lesion identified. Decompressed bladder with mild wall thickening. Ureteral jets not visualized. Hepatic steatosis. IMPRESSION: 1. Mild left-sided hydronephrosis. Correlate with urinalysis to exclude an obstructing ureteral calcu cb. 2. 5 mm nonobstructing right renal calculus. 3. Hepatic steatosis. ACT 112: Negative or not required by law. The above report was generated using voice recognition software. It may contain grammatical, syntax o r spelling errors. Electronically signed by: Billy Farias M.D. 07/20/2021 7:16 AM
[2021-07-20 08:41] LABS: Hematocrit (blood only) 38.1 % (42-52); Hemoglobin 12.8 g/dL (14.0-18.0); Mean Corpuscular Hemoglobin 29.6 pg (25-34); Mean Corpuscular Hgb Conc 33.6 g/dL (32-36); Mean Corpuscular Volume 88.2 fL (80-100); Mean Platelet Volume 12.2 fL (7.4-10.4); Platelet Count 88 K/uL (130-400); RDW Coefficient of Variation 14.4 % (11.5-14.5); RDW Standard Deviation 47.1 fL (36.4-46.3); Red Blood Count 4.32 M/uL (4.7-6.1); White Blood Count 7.03 K/uL (4.8-10.8)
--- NOTE | 2021-07-20 08:50 | Electrocardiogram Report ---
Test Reason : Blood Pressure : / mmHG Vent. Rate : 098 BPM Atrial Rate : 098 BPM P-R Int : 150 ms QRS Dur : 086 ms QT Int : 392 ms P-R-T Axes : 040 036 056 degrees QTc Int : 500 ms Normal sinus rhythm Possible Left atrial enlargement Nonspecific ST and T wave abnormality Prolonged QT Abnormal ECG Confirmed by Jb Garcia ([id number]) on 07/20/2021 8:49:58 AM Referred By: REFERRED SELF Confirmed By:Jefferson Garcia
--- NOTE | 2021-07-20 08:51 | Electrocardiogram Report ---
Test Reason : Blood Pressure : / mmHG Vent. Rate : 078 BPM Atrial Rate : 078 BPM P-R Int : 154 ms QRS Dur : 088 ms QT Int : 392 ms P-R-T Axes : 066 060 065 degrees QTc Int : 446 ms Normal sinus rhythm with sinus arrhythmia Abnormal ECG When compared with ECG of 19-JUL-2021 16:52, (unconfirmed) T wave inversion more evident in Anterior leads QT has shortened Confirmed by Jb Garcia ([id number]) on 07/20/2021 8:50:38 AM Referred By: REFERRED SELF Confirmed By:Jefferson Garcia
[2021-07-20 08:55] LABS: BUN Creatinine Ratio 31.4 (10-20); Calcium 8.3 mg/dl (8.5-10.1); Creatinine Clr Calc Pharmacy 64.3 ml/min; Est GFR (African American) 80.1 ml/min; Est GFR (Non-African American) 69.1 ml/min; Magnesium 1.7 mg/dl (1.7-2.4); Potassium 3.8 mmol/L (3.5-5.1)
[2021-07-20 09:08] LABS: Basophils # (auto) 0.01 K/uL (0-0.2); Basophils % (auto) 0.1 %; Eosinophils # (auto) 0.01 K/uL (0-0.5); Eosinophils % (auto) 0.1 %; Immature Granulocytes # (auto) 0.03 K/uL (0.00-0.02); Immature Granulocytes % (auto) 0.4 %; Lymphocytes # (auto) 0.31 K/uL (1.2-3.4); Lymphocytes % (auto) 4.4 %; Monocytes # (auto) 0.29 K/uL (0.11-0.59); Monocytes % (auto) 4.1 %; Neutrophils # (auto) 6.38 K/uL (1.4-6.5); Neutrophils % (auto) 90.9 %
--- NOTE | 2021-07-20 09:55 | Cardiology Consultation ---
Date of Consultation July 20, 2021 Assessment & Plan (1) Sepsis: (2) Complicated UTI (urinary tract infection): (3) Elevated troponin: (4) NSTEMI (non-ST elevated myocardial infarction): 81-year-old male with longstanding history of severe multivessel coronary artery disease. Patient admitted to [facility] on 07/19/2021 with sepsis secondary to urologic source, complicated by acute kidney injury and evidence of non-ST segment elevation myocardial infarction. Resting echocardiography on July 20, 2021 reveals normal to hyperdynamic LV systolic function without wall motion abnormalities. Patient asymptomatic in regards to anginal symptoms. Options discussed. Recommend appropriate medical management, without utilization of IV heparin at this time. Continue aspirin, beta-radha, nitrates, and statin, changing simvastatin to rosuvastatin. Avoiding QTC prolonging medications noting prolonged QTC intervals recent use of Cipro. Maintain telemetry. Supervising Physician Co-Signing Physician Notes Patient seen and examined at bedside. Admitted with fever and dysuria. Diagnosed with complicated UTI. Urine and blood cultures pending. Due to elevated troponin and cardiology consultation was requested. Patient adamantly denies any chest discomfort or shortness of breath. No change in functional capacity prior to admission. Denies any exertional chest pain or unusual shortness of breath. No orthopnea, PND, or lower extremity edema. PE: VSS. Febrile. Gen: NAD, AAO x3. Heart: Regular, normal S1-S2. No murmur. Lungs: Clear bilateral, no rales rhonchi or wheeze. Extremities: No edema. A/P: Agree with above PA-C history, physical exam, assessment and plan. I would not add intravenous heparin at this time due to thrombocytopenia. Continue outpatient cardiovascular medications. Supportive care and antibiotic therapy as per internal medicine. Await final results of blood and urine cultures. Continue telemetry. History of Present Illness Reason for Consultation: NSTEMI Requesting Physician: Annabel Attending Physician: Tomas History of Present Illness Mr. Sb Strong awoke around 2 AM Monday morning with gross hematuria that persisted throughout the day, with associated dysuria and urgency. He called his PCP and was evaluated on July 19, 2021. He was notably febrile at that time. Prescribed Cipro. While drinking his morning coffee and sitting on a recliner he felt weak and washed out, standing up and falling to the floor, without overt loss of consciousness. Patient admitted to [facility] with a working diagnosis of sepsis secondary to complicated UTI with acute kidney injury. Elevated troponin and abnormal EKG led to cardiology consultation. Troponin 0 0.58, 2.92, 3.59. EKG shows anterior and lateral ST and T wave changes co ncerning for ischemia; when compared to prior EKGs from June 2020, there does not appear to be any significant change. Resting echocardiography on July 20, 2021 revealed normal to hyperdynamic LV systolic function, ejection fraction 65 to 70%, without wall motion abnormality. Patient completely asymptomatic in regards to angina. He specifically denies chest pain, tightness, pressure, heaviness, etc. No current dyspnea. No palpitations. No orthopnea, PND, or edema. No melena or hematochezia. No further hematuria. Patient carries a longstanding history of coronary artery disease. Initial myocardial infarction was in the 1970s. Current angina symptoms led to October 06, 2009 catheterization demonstrating extensive 3-vessel coronary artery disease with critical left main narrowing, preserved LV systolic function, normal left ventricular end diastolic pressure. On October 09, 2009 he underwent CABG x [address] Pittman, receiving a left internal mammary artery grafted to the left anterior descending artery, reverse saphenous vein grafts from the aorta to the diagonal and then to the obtuse marginal branch of the circumflex in a sequential fashion, and a separate vein graft was placed from the aorta to the posterior descending artery and then to the posterior ventricular branch in a sequential fashion. CABG course complicated by a perioperative inferior myocardial infarction, atrial fibrillation, pericardial effusion, and a postoperative ileus requiring NG tube decompression. Additional problems hypertension, dyslipidemia, past tobacco abuse, diaphragmatic hernia, osteoarthritis, BPH with LUTS Allergies Allergy/AdvReac Type Severity Reaction Status Date / Time No Known Allergies Allergy Verified 02/19/20 14:18 Home Medications Medication Instructions Recorded Confirmed Type isosorbide mononitrate 30 mg 30 mg PO QAM 02/19/20 07/19/21 History tablet,extended release 24 hr metoprolol tartrate 50 mg tablet 50 mg PO Q12 02/19/20 07/19/21 History nitroglycerin 0.4 mg sublingual 0.4 mg SUBLINGUAL UD PRN 02/19/20 07/19/21 Hist ory tablet simvastatin 10 mg tablet 10 mg PO HS 02/19/20 07/19/21 History tamsulosin 0.4 mg capsule 0.4 mg PO HS 02/19/20 07/19/21 History acetaminophen 325 mg tablet 650 mg PO Q4 PRN 07/19/21 07/19/21 History (Tylenol) aspirin 325 mg tablet 325 mg PO DAILY 07/19/21 07/19/21 History celecoxib 100 mg capsule 200 mg PO DAILY 07/19/21 07/19/21 History ciprofloxacin HCl 500 mg tablet 500 mg PO AMHS 07/19/21 07/19/21 History mirabegron 25 mg tablet,extended 25 mg PO DAILY 07/19/21 07/19/21 History release 24 hr (Myrbetriq) ewbbywkslncc-bfk-sukao acid-vit 1 tab PO DAILY 07/19/21 07/19/21 History K-lycop 400 mcg-20 mcg-370 mcg tablet (One-A-Day Men's 50 Plus) Patient History Medical History CAD (coronary artery disease) s/p CABG x 5 (2008) Enlarged prostate Hiatal hernia History of atrial fibrillation post operative CABG (2008)/paroxysmal > no recent recurrence per cardiology History of bradycardia History of urinary urgency HTN (hypertension) Hyperlipemia Myocardial infarction 2006 Osteoarthritis Postoperative ileus h/o following CABG Surgical History History of arthroscopic surgery of shoulder R/L History of back surgery L3-S1 decompression/fusion: 09/21/17: Grade view 1, MAC#3, ETT 8.0 at [facility] History of cardiac catheterization 2006- no stents, 2008 > CABG History of carpal tunnel surgery of left wrist History of colonoscopy History of right hip replacement History of tonsillectomy History of tooth extraction Hx of CABG 5 vessels (2008) Family History Other Heart disease Hypertension No family history of adverse response to anesthesia Social History Smoking Status: Former smoker Years Smoked: 30; Smoking End Date: 1977; Second Hand Exposure: No; Hx Alcohol Use: Yes Hx Substance Use: No Preferred Language: Divehi Communication Ability: Effective 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 Physical Exam Physical Exam: General: A&Ox3. NAD. HENT: Normocephalic. Atraumatic. Eyes: PER. Conjunctiva pink, sclera clear. Neck: No JVD. Heart: RRR 70 bpm. Soft systolic murmur in the outflow tract. PMI is nondisplaced. Lungs: Clear to auscultation. Abdomen: +BS. Soft. Nontender. No masses or organomegaly. Extremities: Minimal edema. No clubbing. No cyanosis. Limited neurological examination is without focal deficits. Pulses: radial=2/4, posterior tibial=1/4. Results & Data ([facility]) Vital Signs (Past 12 Hours) Vital Signs Temp Pulse Pulse Resp BP BP Pulse Ox 07/20/21 08:01 37.9 C H 86 18 126/68 94 07/20/21 07:32 81 07/20/21 03:10 36.9 C 80 18 121/58 L 92 07/19/21 23:12 36.9 C 69 18 129/76 97 07/19/21 22:55 73 Laboratory Results Laboratory Results - last 24 hr 07/19/21 07/19/21 07/19/21 17:08 17:08 17:08 WBC 11.35 H RBC 4.92 Hgb 14.4 Hct 43.4 MCV 88.2 MCH 29.3 MCHC 33.2 RDW Std Deviation 45.3 RDW Coeff of Nely 14.0 Plt Count 118 L MPV 12.3 H Immature Gran % (Auto) 0.4 Neut % (Auto) 91.1 Lymph % (Auto) 3.7 Frio % (Auto) 4.6 Eos % (Auto) 0.1 Baso % (Auto) 0.1 Neut # (Auto) 10.34 H Lymph # (Auto) 0.42 L Frio # (Auto) 0.52 Eos # (Auto) 0.01 Baso # (Auto) 0.01 Immature Gran # (Auto) 0.05 H Platelet Estimate Decreased L Sodium 141 Potassium 3.8 Chloride 110 H Carbon Dioxide 23 Anion Gap 8 BUN 29 H Creatinine 1.45 H Est Cr Clr Drug Dosing 45.3 Est GFR ( Amer) 52.3 Est GFR (Non-Af Amer) 45.2 BUN/Creatinine Ratio 20.0 Glucose 151 H Lactate Calcium 9.7 Phosphorus Magnesium Total Bilirubin 1.2 H AST 26 ALT 22 Alkaline Phosphatase 79 Troponin I 0.58 H* Total Protein 6.4 Albumin 4.1 Globulin 2.3 L Albumin/Globulin Ratio 1.8 TSH 0.355 Urine Color Urine Appearance Urine pH Ur Specific [place] Urine Protein Urine Glucose (UA) Urine Ketones Urine Blood Urine Nitrite Urine Bilirubin Urine Urobilinogen Ur Leukocyte Esterase Urine WBC (Auto) Urine RBC (Auto) U Hyaline Cast (Auto) U Epithel Cells (Auto) Urine Bacteria (Auto) SARS-CoV-2, RNA, NAAT 07/19/21 07/19/21 07/19/21 17:08 18:08 19:02 WBC RBC Hgb Hct MCV MCH MCHC RDW Std Deviation RDW Coeff of Nely Plt Count MPV Immature Gran % (Auto) Neut % (Auto) Lymph % (Auto) Frio % (Auto) Eos % (Auto) Baso % (Auto) Neut # (Auto) Lymph # (Auto) Frio # (Auto) Eos # (Auto) Baso # (Auto) Immature Gran # (Auto) Platelet Estimate Sodium Potassium Chloride Carbon Dioxide Anion Gap BUN Creatinine Est Cr Clr Drug Dosing Est GFR ( Amer) Est GFR (Non-Af Amer) BUN/Creatinine Ratio Glucose Lactate 2.8 H* 2.3 H* Calcium Phosphorus Magnesium Total Bilirubin AST ALT Alkaline Phosphatase Troponin I Total Protein Albumin Globulin Albumin/Globulin Ratio TSH Urine Color [place] Urine Appearance Turbid A Urine pH 6.0 Ur Specific [place] 1.027 Urine Protein 3+ H Urine Glucose (UA) Negative Urine Ketones Trace H Urine Blood 3+ H Urine Nitrite Positive A Urine Bilirubin 1+ H Urine Urobilinogen Negative Ur Leukocyte Esterase 2+ H Urine WBC (Auto) >30 H Urine RBC (Auto) >30 H U Hyaline Cast (Auto) 10-30 H U Epithel Cells (Auto) 10-20 H Urine Bacteria (Auto) Negative SARS-CoV-2, RNA, NAAT 07/19/21 07/19/21 07/20/21 22:56 Unknown 05:31 WBC RBC Hgb Hct MCV MCH MCHC RDW Std Deviation RDW Coeff of Nely Plt Count MPV Immature Gran % (Auto) Neut % (Auto) Lymph % (Auto) Frio % (Auto) Eos % (Auto) Baso % (Auto) Neut # (Auto) Lymph # (Auto) Frio # (Auto) Eos # (Auto) Baso # (Auto) Immature Gran # (Auto) Platelet Estimate Sodium Potassium Chloride Carbon Dioxide Anion Gap BUN Creatinine Est Cr Clr Drug Dosing Est GFR ( Amer) Est GFR (Non-Af Amer) BUN/Creatinine Ratio Glucose Lactate Calcium Phosphorus Magnesium Total Bilirubin AST ALT Alkaline Phosphatase Troponin I 2.92 H* 3.59 H* Total Protein Albumin Globulin Albumin/Globulin Ratio TSH Urine Color Urine Appearance Urine pH Ur Specific [place] Urine Protein Urine Glucose (UA) Urine Ketones Urine Blood Urine Nitrite Urine Bilirubin Urine Urobilinogen Ur Leukocyte Esterase Urine WBC (Auto) Urine RBC (Auto) U Hyaline Cast (Auto) U Epithel Cells (Auto) Urine Bacteria (Auto) SARS-CoV-2, RNA, NAAT NEGATIVE 07/20/21 07/20/21 07/20/21 08:13 08:13 08:13 WBC 7.03 RBC 4.32 L Hgb 12.8 L Hct 38.1 L MCV 88.2 MCH 29.6 MCHC 33.6 RDW Std Deviation 47.1 H RDW Coeff of Nely 14.4 Plt Count 88 L MPV 12.2 H Immature Gran % (Auto) 0.4 Neut % (Auto) 90.9 Lymph % (Auto) 4.4 Frio % (Auto) 4.1 Eos % (Auto) 0.1 Baso % (Auto) 0.1 Neut # (Auto) 6.38 Lymph # (Auto) 0.31 L Frio # (Auto) 0.29 Eos # (Auto) 0.01 Baso # (Auto) 0.01 Immature Gran # (Auto) 0.03 H Platelet Estimate Sodium 138 Potassium 3.8 Chloride 112 H Carbon Dioxide 21 Anion Gap 5 BUN 32 H Creatinine 1.02 D Est Cr Clr Drug Dosing 64.3 Est GFR ( Amer) 80.1 Est GFR (Non-Af Amer) 69.1 BUN/Creatinine Ratio 31.4 H Glucose 114 H Lactate 1.2 Calcium 8.3 L Phosphorus 2.0 L Magnesium 1.7 Total Bilirubin AST ALT Alkaline Phosphatase Troponin I Total Protein Albumin Globulin Albumin/Globulin Ratio TSH Urine Color Urine Appearance Urine pH Ur Specific [place] Urine Protein Urine Glucose (UA) Urine Ketones Urine Blood Urine Nitrite Urine Bilirubin Urine Urobilinogen Ur Leukocyte Esterase Urine WBC (Auto) Urine RBC (Auto) U Hyaline Cast (Auto) U Epithel Cells (Auto) Urine Bacteria (Auto) SARS-CoV-2, RNA, NAAT Diagnostic Findings February 27, 2020 TTE Interpretation Summary (as per Dr. Lovelace): The examination is limited quality but adequate for evaluation of the referral indication. The qualitative LV ejection fraction is 55-59% (normal). The base posterior wall is hypokinetic. The base inferior wall is thinned and akinetic. The regional left ventricular wall motion is otherwise normal. Mild aortic valve sclerosis is present. The aortic root is mildly enlarged. July 23, 2020 Lexiscan Interpretation Summary (as per Dr. Hall): Myocardial perfusion imaging is normal. Overall left ventricular systolic function was normal without regional wall motion abnormalities. The left ventricular ejection fraction was 64%. There are no prior studies available for comparison. EKG on presentation revealed normal sinus rhythm at 98 bpm with left atrial enlargement anterolateral ST and T wave changes suggestive of ischemia, prolonged QT of 500 ms. Repeat EKG revealed normal sinus rhythm with sinus arrhythmia, marked anterior and lateral ST and T wave changes suggestive of ischemia. It should be noted that prior EKGs obtained at [facility] showed significant ST and T wave changes anteriorly and laterally prior to the July 23, 2020 Lexiscan stress test which is summarized above. July 20, 2021 TTE interpretation summary ([facility], Dr. Lizama): Technically adequate. No comparison study available. Ejection fraction 65 to 70%. No wall motion abnormalities noted. Mild concentric LVH. Mild aortic valve sclerosis, without significant aortic valve stenosis. Mild mitral regurgitation. Continuous telemetry monitoring reveals sinus with rates in the 70s and 80s.
[2021-07-20] MEDS: SODIUM CHLORIDE 0.9% 1000ML 1,000 ML IV SCH (10:00)
[2021-07-20] MEDS: MULTIVITAMIN TAB PO SCH (10:26)
[2021-07-20] MEDS: ISOSORBIDE MONO EXTENDED REL 30 MG TABCR PO SCH (10:26)
[2021-07-20] MEDS: MIRABEGRON ER 25 MG TAB PO SCH (10:27)
[2021-07-20] MEDS: ASPIRIN 81 MG ECTAB PO SCH (12:58)
[2021-07-20] MEDS: CEFEPIME 2,000 MG in SYRINGE 0 ML IV SCH ×2 (14:00→22:25)
[2021-07-20] MEDS: ACETAMINOPHEN 325 MG TAB PO PRN (15:04)
[2021-07-20] MEDS: METOPROLOL TARTRATE 50 MG TAB PO SCH ×2 (15:09→21:12)
[2021-07-20] MEDS: POT PHOSPHATE MONOBASIC W/ SOD TAB PO SCH ×4 (15:45→21:13)
--- NOTE | 2021-07-20 16:02 | Hospitalist Progress Note ---
Date of Service July 20, 2021 Assessment & Plan (1) Generalized weakness: (2) Hematuria: (3) Acute kidney injury: (4) Complicated UTI (urinary tract infection): Plan: 81yo M with a PMH of CAD s/p CABG, BPH, paroxysmal A Fib, DLD, prediabetes and other medical problems listed below who presents with urinary symptoms and was found to have sepsis 2/2 complicated UTI and acute kidney injury. He is being managed for the following: (1) Severe Sepsis POA: increase Pulse, Increase RR, Increase lactate and UTI at presentation. (2) Complicated UTI (urinary tract infection): (3) Hematuria: in the setting of UTI, improving, Outpatient Urinalysis in 4-6 weeks. 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 Febrile and tachypneic at PCP visit earlier on 07/19 on the day of arrival with abnormal UA - felt worse after first dose of Cipro and presented to ED for further evaluation Hypotensive in ED --> responded to fluid resuscitation. Admitting renal ultrasound: Mild left-sided hydronephrosis and 5 mm nonobstructing right renal calculus. Admitting urine and blood culture: Pending Continue with cefepime 07/19, there was delay in dosing on 07/20 due to problem with ordering WBC trending down, T-max of 39.4 C today. Lactate normalized. Continue to monitor, follow labs daily. (5) Acute kidney injury: Plan: Cr 1.45 (baseline ~1.0-1.1) In setting of UTI Resolved, patient received IV fluid, can DC IV fluid , patient started on diet. (6) Elevated troponin: (#) NSTEMI Plan: Initial troponin 0.58 up trended to 3.59, ECG with non-specific ST changes that are present previously but possibly worse 07/20 echo reviewed, EF 65 to 70% with mild concentric LVH and mild MR. No chest pain prior and during the hospitalization. Continue telemetry Cardiology evaluated, conservative Mx, no heparin drip Continue with outpatient cardiology medications. (7) CAD (coronary artery disease): Plan: H/o CABG in 2001. Transition from aspirin 325 to 81mg given low platelets, hem aturia (8) Paroxysmal atrial fibrillation: Plan: Continue Lopressor (9) BPH (benign prostatic hyperplasia): Plan: Continue Flomax, follows with [facility] DVT Ppx: SCDs given thrombocytopenia and hematuria Code status: FULL PCP: MOY Garza ([place]) Dispo: c/w med tele Admission and Anticipated Discharge Date Admission Date: July 19, 2021 Subjective Patient seen and examined at bedside for follow-up of sepsis secondary to complicated UTI and hematuria and generalized weakness and acute kidney injury. Patient was lying in bed, NAD, on room air, no new acute events overnight. Patient reports feeling better. Patient reports feeling weak. Patient was n.p.o. due to troponin elevation overnight, since cardiology is not doing any procedure, will resume diet. Patient denies any chills/chest pain/palpitations/belly pain/fever/problem with bowel movements/other review of symptoms. Physical Exam Physical Exam: GENERAL: Alert and oriented x3. NAD, on RA. HEENT: No pallor, no icterus. Pupils equal, round and reactive to light. Oral mucosa moist. NECK: No JVD, no neck masses. HEART: S1 and S2 heard. Regular rate and rhythm. No murmur, no gallop. RESPIRATORY SYSTEM: Normal AP diameter. No accessory muscle use. No wheezing, no crackles. ABDOMEN: Soft, bowel sounds present, nontender, no distention. CENTRAL NERVOUS SYSTEM: No facial droop. Speech is clear. Obeys simple commands. Moves extremities. EXTREMITIES: Trace BLE edema, no erythema seen. Urine collection in the urinal was free of hematuria to naked eye. Results & Data Results & Data ([facility]) Vital Signs (Past 12 Hours) Vital Signs Temp Pulse Pulse Resp BP BP Pulse Ox 07/20/21 15:20 39.4 C H 83 20 147/72 H 94 07/20/21 08:01 37.9 C H 86 18 126/68 94 07/20/21 07:32 81
[2021-07-20] MEDS: MAGNESIUM OXIDE 400 MG TAB PO SCH ×2 (17:15→21:12)
[2021-07-20] MEDS: TAMSULOSIN HCL 0.4 MG CAP PO SCH (21:12)
[2021-07-20] MEDS: LIDOCAINE 5% 1 PATCH TD SCH ×2 (21:12)
[2021-07-21 07:00] LABS: Hematocrit (blood only) 39.2 % (42-52); Hemoglobin 13.1 g/dL (14.0-18.0); Mean Corpuscular Hgb Conc 33.4 g/dL (32-36); Mean Corpuscular Volume 86.7 fL (80-100); Mean Platelet Volume 12.9 fL (7.4-10.4); Platelet Count 104 K/uL (130-400); RDW Coefficient of Variation 14.3 % (11.5-14.5); RDW Standard Deviation 45.4 fL (36.4-46.3); Red Blood Count 4.52 M/uL (4.7-6.1); White Blood Count 6.15 K/uL (4.8-10.8)
[2021-07-21 07:23] LABS: BUN Creatinine Ratio 33.3 (10-20); Calcium 8.1 mg/dl (8.5-10.1); Creatinine Clr Calc Pharmacy 73.2 ml/min; Est GFR (African American) 93.2 ml/min; Est GFR (Non-African American) 80.4 ml/min; Magnesium 1.9 mg/dl (1.7-2.4); Phosphorus 2.8 mg/dl (2.5-4.9); Potassium 3.7 mmol/L (3.5-5.1)
[2021-07-21] MEDS: ROSUVASTATIN CALCIUM 20 MG TAB PO SCH (07:49)
[2021-07-21] MEDS: ASPIRIN 81 MG ECTAB PO SCH (07:49)
[2021-07-21] MEDS: ISOSORBIDE MONO EXTENDED REL 30 MG TABCR PO SCH (07:50)
[2021-07-21] MEDS: MAGNESIUM OXIDE 400 MG TAB PO SCH ×2 (07:50→21:42)
[2021-07-21] MEDS: MIRABEGRON ER 25 MG TAB PO SCH (07:50)
[2021-07-21] MEDS: METOPROLOL TARTRATE 50 MG TAB PO SCH ×2 (07:50→21:42)
[2021-07-21] MEDS: MULTIVITAMIN TAB PO SCH (07:51)
[2021-07-21] MEDS: CEFEPIME 2,000 MG in SYRINGE 0 ML IV SCH ×2 (07:52→21:45)
--- NOTE | 2021-07-21 11:12 | Cardiology Progress Note ---
Date of Service July 21, 2021 Assessment & Plan (1) Sepsis: (2) Complicated UTI (urinary tract infection): (3) Elevated troponin: (4) NSTEMI (non-ST elevated myocardial infarction): Plan: 81-year-old male with longstanding history of severe multivessel coronary artery disease. Patient admitted to [facility] on 07/19/2021 with sepsis secondary to urologic source, complicated by acute kidney injury and evidence of non-ST segment elevation myocardial infarction. 1 of 2 blood cultures growing gram-negative bacilli. Patient asymptomatic in regards to anginal symptoms, feeling substantially better following administration of IV antibiotic therapy, cefepime. Resting echocardiography on July 20, 2021 reveals normal to hyperdynamic LV systolic function without wall motion abnormalities. Continue appropriate cardiac medical management, without utilization of IV heparin, continuing aspirin (dosage reduced this admission), beta-radha, nitrates, and statin. Simvastatin changed to rosuvastatin. Commend avoiding QTC prolonging medications possible noting prolonged QTC intervals on presentation, UTI initially treated with Cipro. Admission and Anticipated Discharge Date Admission Date: July 19, 2021 Supervising Physician Co-Signing Physician Notes Patient seen and examined at bedside. Admitted with urosepsis. 1 of 2 blood cultures growing gram-negative bacilli. Elevated troponin without chest discomfort or ECG changes. Echocardiogram demonstrates normal wall motion with hyperdynamic LV function. Patient chest pain-free. Telemetry reveals sinus rhythm in the 60s. Notes feeling much better today. Receiving daily antibiotics. No orthopnea, PND, or lower extremity edema. PE: VSS. Febrile. Gen: NAD, AAO x3. Heart: Regular, normal S1-S2. No murmur. Lungs: Clear bilateral, no rales rhonchi or wheeze. Extremities: No edema. A/P: Agree with above PA-C history, physical exam, assessment and plan. Continue outpatient cardiovascular medications. Supportive care and antibiotic therapy as per internal medicine. Await final results of blood and urine cultures. Narrow antibiotic spectrum as indicated pending sensitivity results. Continue telemetry. Subjective Patient seen and examined. Chart, medications, and telemetry reviewed. Patient notes feeling substantially better overall today as compared to yesterday. Strength has improved. No dysuria or hematuria. No chest pain. No palpitations. No shortness of breath, cough, orthopnea, PND, or peripheral edema. No headaches or unilateral complaints. No dizziness or near syncope. No fevers or chills. No melena or hematochezia Continuous telemetry monitoring reveals sinus predominantly in the 60s. No significant arrhythmias observed. Review of Systems Review of Systems: Complete review of systems is otherwise as stated above, negative, noncontributory. Physical Exam Physical Exam: General: A&Ox3. NAD. HENT: Normocephalic. Atraumatic. Eyes: PER. Conjunctiva pink, sclera clear. Neck: No JVD. Heart: RRR 64 bpm. Soft systolic murmur in the outflow tract. PMI is nondi splaced. Lungs: Clear to auscultation. Abdomen: +BS. Soft. Nontender. No masses or organomegaly. Extremities: Minimal edema. No clubbing. No cyanosis. Limited neurological examination is without focal deficits. Pulses: radial=2/4, posterior tibial=1/4. Results & Data ([facility]) Vital Signs (Past 12 Hours) Vital Signs Temp Pulse Pulse Resp BP Pulse Ox 07/21/21 07:32 36.6 C 67 18 148/77 H 97 07/21/21 07:10 66 07/21/21 03:00 37.3 C 71 20 132/71 95 Laboratory Results Laboratory Results - last 24 hr 07/19/21 07/21/21 07/21/21 17:08 06:19 06:19 WBC 6.15 RBC 4.52 L Hgb 13.1 L Hct 39.2 L MCV 86.7 MCH 29.0 MCHC 33.4 RDW Std Deviation 45.4 RDW Coeff of Nely 14.3 Plt Count 104 L MPV 12.9 H Sodium 137 Potassium 3.7 Chloride 108 H Carbon Dioxide 21 Anion Gap 8 BUN 30 H Creatinine 0.90 Est Cr Clr Drug Dosing 73.2 Est GFR ( Amer) 93.2 Est GFR (Non-Af Amer) 80.4 BUN/Creatinine Ratio 33.3 H Glucose 105 H Calcium 8.1 L Phosphorus 2.8 Magnesium 1.9 Bld Cult Staph aureus PCR Negative Blood Culture MRSA PCR Negative
[2021-07-21] MEDS: ACETAMINOPHEN 325 MG TAB PO PRN (15:08)
--- NOTE | 2021-07-21 17:51 | Hospitalist Progress Note ---
Date of Service July 21, 2021 Assessment & Plan (1) Generalized weakness: (2) Hematuria: (3) Acute kidney injury: (4) Complicated UTI (urinary tract infection): Plan: 81yo M with a PMH of CAD s/p CABG, BPH, paroxysmal A Fib, DLD, prediabetes and other medical problems listed below who presents with urinary symptoms and was found to have sepsis 2/2 complicated UTI and acute kidney injury. He is being managed for the following: (1) Severe Sepsis POA: increase Pulse, Increase RR, Increase lactate and UTI at presentation. (2) Complicated UTI (urinary tract infection): (3) Hematuria: in the setting of UTI and BPH, improving, Outpatient Urinalysis in 4-6 weeks. 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 Admitting renal ultrasound: Mild left-sided hydronephrosis and 5 mm nonobstructing right renal calculus. Admitting urine and blood culture UCx contaminated BlCx GNB prelim Continue with cefepime 07/19, there was delay in dosing on 07/20 due to problem with ordering WBC trending down, temperature getting better. Patient feels better. Continue to monitor, follow labs daily. ID consultbacteremia. (5) Acute kidney injury: Plan: Cr 1.45 (baseline ~1.0-1.1) In setting of UTI Resolved, patient received IV fluid, can DC IV fluid , patient started on diet. (6) Elevated troponin: (#) NSTEMI Plan: Initial troponin 0.58 up trended to 3.59, ECG with non-specific ST changes that are present previously but possibly worse 07/20 echo reviewed, EF 65 to 70% with mild concentric LVH and mild MR. No chest pain prior and during the hospitalization. Continue telemetry Cardiology evaluated, conservative Mx, no heparin drip, simvastatin changed to rosuvastatin Continue with outpatient cardiology medications. (7) CAD (coronary artery disease): Plan: H/o CABG in 2001. Transition from aspirin 325 to 81mg given low platelets, hem aturia (8) Paroxysmal atrial fibrillation: Plan: Continue Lopressor (9) BPH (benign prostatic hyperplasia): Plan: Continue Flomax, follows with [facility] urology at [facility] DVT Ppx: SCDs given thrombocytopenia and hematuria Code status: FULL PCP: MOY Garza ([place]) Dispo: c/w med tele Admission and Anticipated Discharge Date Admission Date: July 19, 2021 Subjective Patient seen and examined at bedside for follow-up of sepsis secondary to complicated UTI and hematuria and generalized weakness and acute kidney injury. Patient was lying in bed, NAD, on room air, no new acute events overnight. Patient reports feeling better. Patient reports feeling better. Patient denies any chills/chest pain/palpitations/belly pain/fever/problem with bowel movements/other review of symptoms. Patient reports no further blood in his urine. Physical Exam Physical Exam: GENERAL: Alert and oriented x3. NAD, on RA. HEENT: No pallor, no icterus. Pupils equal, round and reactive to light. Oral mucosa moist. NECK: No JVD, no neck masses. HEART: S1 and S2 heard. Regular rate and rhythm. No murmur, no gallop. RESPIRATORY SYSTEM: Normal AP diameter. No accessory muscle use. No wheezing, no crackles. ABDOMEN: Soft, bowel sounds present, nontender, no distention. CENTRAL NERVOUS SYSTEM: No facial droop. Speech is clear. Obeys simple commands. Moves extremities. EXTREMITIES: Trace BLE edema, no erythema seen. Results & Data Results & Data ([facility]) Vital Signs (Past 12 Hours) Vital Signs Temp Pulse Pulse Resp BP Pulse Ox 07/21/21 16:13 81 07/21/21 14:56 37.8 C H 83 18 151/73 H 95 07/21/21 11:26 36.8 C 63 18 121/80 96 07/21/21 07:32 36.6 C 67 18 148/77 H 97 07/21/21 07:10 66
[2021-07-21] MEDS: LIDOCAINE 5% 1 PATCH TD SCH (21:41)
[2021-07-21] MEDS: TAMSULOSIN HCL 0.4 MG CAP PO SCH (21:42)
[2021-07-22 06:56] LABS: Hematocrit (blood only) 40.6 % (42-52); Hemoglobin 13.6 g/dL (14.0-18.0); Mean Corpuscular Hemoglobin 28.9 pg (25-34); Mean Corpuscular Hgb Conc 33.5 g/dL (32-36); Mean Corpuscular Volume 86.2 fL (80-100); Mean Platelet Volume 12.6 fL (7.4-10.4); Platelet Count 113 K/uL (130-400); RDW Coefficient of Variation 14.2 % (11.5-14.5); RDW Standard Deviation 44.5 fL (36.4-46.3); Red Blood Count 4.71 M/uL (4.7-6.1); White Blood Count 7.62 K/uL (4.8-10.8)
[2021-07-22 07:12] LABS: BUN Creatinine Ratio 27.3 (10-20); Calcium 8.3 mg/dl (8.5-10.1); Creatinine Clr Calc Pharmacy 85.6 ml/min; Est GFR (African American) 99.3 ml/min; Est GFR (Non-African American) 85.7 ml/min; Potassium 3.6 mmol/L (3.5-5.1)
[2021-07-22] MEDS: ISOSORBIDE MONO EXTENDED REL 30 MG TABCR PO SCH (08:23)
[2021-07-22] MEDS: ROSUVASTATIN CALCIUM 20 MG TAB PO SCH (08:23)
[2021-07-22] MEDS: METOPROLOL TARTRATE 50 MG TAB PO SCH ×2 (08:23→21:43)
[2021-07-22] MEDS: MIRABEGRON ER 25 MG TAB PO SCH (08:23)
[2021-07-22] MEDS: MAGNESIUM OXIDE 400 MG TAB PO SCH ×2 (08:23→21:42)
[2021-07-22] MEDS: ASPIRIN 81 MG ECTAB PO SCH (08:23)
[2021-07-22] MEDS: MULTIVITAMIN TAB PO SCH (08:23)
[2021-07-22] MEDS: CEFEPIME 2,000 MG in SYRINGE 0 ML IV SCH ×2 (08:27→21:41)
[2021-07-22] MEDS ORDERED: POTASSIUM CHLORIDE 10 MEQ TABCR PO ONE (10:11)
--- NOTE | 2021-07-22 10:12 | Cardiology Progress Note ---
Date of Service July 22, 2021 Assessment & Plan (1) Sepsis: (2) Complicated UTI (urinary tract infection): (3) Elevated troponin: (4) NSTEMI (non-ST elevated myocardial infarction): Plan: 81-year-old male with longstanding history of severe multivessel coronary artery disease. Patient admitted to [facility] on 07/19/2021 with sepsis secondary to urologic source, complicated by acute kidney injury and evidence of non-ST segment elevation myocardial infarction. 2 of 2 blood cultures growing gram-negative bacilli. Patient asymptomatic in regards to anginal symptoms, feeling substantially better each and every day. Resting echocardiography on July 20, 2021 revealed normal to hyperdynamic LV systolic function without wall motion abnormalities. Continue appropriate cardiac medical management, without utilization of IV heparin; continuing aspirin (dosage reduced this admission), beta-radha, nitrates, and statin. Simvastatin changed to rosuvastatin this admission. Recommend avoiding QTC prolonging medications possible noting prolonged QTC intervals on presentation (initially treated with Cipro as an outpatient). Potassium supplement ordered today. Cardiology will sign off at this time Please call with any questions or concerns. Admission and Anticipated Discharge Date Admission Date: July 19, 2021 Supervising Physician Co-Signing Physician Notes Patient seen and examined at bedside. Admitted with urosepsis. Blood cultures growing gram-negative bacilli. Asymptomatic from a cardiovascular perspective. Telemetry reveals sinus rhythm. No dysrhythmias. is present at bedside. She offers no additional concerns/complaints. PE: VSS. Febrile. Gen: NAD, AAO x3. Heart: Regular, normal S1-S2. No murmur. Lungs: Clear bilateral, no rales rhonchi or wheeze. Extremities: No edema. A/P: Agree with above PA-C history, physical exam, assessment and plan. Continue outpatient cardiovascular medications. Supportive care and antibiotic therapy as per internal medicine. Await final results of blood and urine cultures. No further inpatient cardiology testing or intervention. Cardiology will sign off. Please call with questions. Subjective Patient seen and examined. Chart, medications, and telemetry reviewed. Feeling better today compared to yesterday. Notes getting up to the bathroom and cleaning up on his own without difficulty. Feels stronger, less fatigued. No pain anywhere. He specifically denies chest pain, palpitations, dyspnea, fluid retention, dizziness, melena, or hematochezia. No dysuria or hematuria. Continuous telemetry monitoring reveals sinus predominantly in the 60s and 70s. No significant arrhythmias observed. Review of Systems Review of Systems: Complete review of systems is otherwise as stated above, negative, noncontributory. Physical Exam Physical Exam: General: A&Ox3. NAD. HENT: Normocephalic. Atraumatic. Eyes: PER. Conjunctiva pink, sclera clear. Neck: No JVD. Heart: RRR 66 bpm. Soft systolic murmur in the outflow tract. PMI is nondisplaced. Lungs: Clear to auscultation. Abdomen: +BS. Soft. Nontender. No masses or organomegaly. Extremities: No edema. No clubbing. No cyanosis. Limited neurological examination is without focal deficits. Pulses: radial=2/4, posterior tibial=1/4. Results & Data ([facility]) Vital Signs (Past 12 Hours) Vital Signs Temp Pulse Pulse Resp BP Pulse Ox Pulse Ox 07/22/21 07:38 36.6 C 62 18 135/74 96 07/22/21 07:24 64 07/22/21 03:46 36.8 C 67 20 146/83 H 96 07/21/21 23:42 94 07/21/21 23:22 36.9 C 79 20 137/78 94 07/21/21 22:18 77 Laboratory Results Laboratory Results - last 24 hr 07/22/21 07/22/21 06:08 06:08 WBC 7.62 RBC 4.71 Hgb 13.6 L Hct 40.6 L MCV 86.2 MCH 28.9 MCHC 33.5 RDW Std Deviation 44.5 RDW Coeff of Nely 14.2 Plt Count 113 L MPV 12.6 H Sodium 136 Potassium 3.6 Chloride 106 Carbon Dioxide 23 Anion Gap 7 BUN 21 Creatinine 0.77 Est Cr Clr Drug Dosing 85.6 Est GFR ( Amer) 99.3 Est GFR (Non-Af Amer) 85.7 BUN/Creatinine Ratio 27.3 H Glucose 108 H Calcium 8.3 L
--- NOTE | 2021-07-22 15:17 | Hospitalist Progress Note ---
Date of Service July 22, 2021 Assessment & Plan (1) Generalized weakness: (2) Hematuria: (3) Acute kidney injury: (4) Complicated UTI (urinary tract infection): Plan: 81yo M with a PMH of CAD s/p CABG, BPH, paroxysmal A Fib, DLD, prediabetes and other medical problems listed below who presents with urinary symptoms and was found to have sepsis 2/2 complicated UTI and acute kidney injury. He is being managed for the following: (1) Severe Sepsis POA: increase Pulse, Increase RR, Increase lactate and UTI at presentation. (2) Complicated UTI (urinary tract infection): (3) Hematuria: in the setting of UTI and BPH, improving, Outpatient Urinalysis in 4-6 weeks. 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 Febrile and tachypneic at PCP visit earlier on 07/19 on the day of arrival with abnormal UA - felt worse after first dose of Cipro and presented to ED for further evaluation Hypotensive in ED --> responded to fluid resuscitation. Admitting renal ultrasound: Mild left-sided hydronephrosis and 5 mm nonobstructing right renal calculus. Admitting urine and blood culture UCx contaminated BlCx positive for Proteus Sp (await sensitivity), repeat Bl Cx 07/22 Continue with cefepime 07/19, there was delay in dosing on 07/20 due to problem with ordering WBC WNL, temperature WNL. Patient feels better. Continue to monitor, follow labs daily. ID consultbacteremia. Awaiting Recs. (5) Acute kidney injury: Plan: Cr 1.45 (baseline ~1.0-1.1) In setting of UTI Resolved (6) Elevated troponin: (#) NSTEMI Plan: Initial troponin 0.58 up trended to 3.59, ECG with non-specific ST changes that are present previously but possibly worse 07/20 echo reviewed, EF 65 to 70% with mild concentric LVH and mild MR. No chest pain prior and during the hospitalization. Continue telemetry Cardiology evaluated, conservative Mx, no heparin drip, simvastatin changed to rosuvastatin this admission, Aspirin dose reduced this admission, Avoid QTc prolonging meds. Continue with outpatient cardiology medications with above modifications. (7) CAD (coronary artery disease): Plan: H/o CABG in 2001. Transitioned from aspirin 325 to 81mg given low platelets, hem aturia (8) Paroxysmal atrial fibrillation: Plan: Continue Lopressor (9) BPH (benign prostatic hyperplasia): Plan: Continue Flomax, follows with [place] [facility] at [facility] DVT Ppx: SCDs given thrombocytopenia and hematuria Code status: FULL PCP: MOY Garza ([place]) Dispo: c/w med tele, PT/OT to [facility] to assist with DC planning. Expect discharge with recommendations from ID and follow-up negative blood culture. Admission and Anticipated Discharge Date Admission Date: July 19, 2021 Subjective Patient seen and examined at bedside for follow-up of sepsis secondary to complicated UTI and hematuria and generalized weakness and acute kidney injury. Patient was lying in bed, NAD, on room air, no new acute events overnight. Patient reports feeling little bit more strong. Patient reports feeling better. Patient denies any chills/chest pain/palpitations/belly pain/fever/problem with bowel movements/other review of symptoms. Patient reports no further blood in his urine or dysuria. Physical Exam Physical Exam: GENERAL: Alert and oriented x3. NAD, on RA. HEENT: No pallor, no icterus. Pupils equal, round and reactive to light. Oral mucosa moist. NECK: No JVD, no neck masses. HEART: S1 and S2 heard. Regular rate and rhythm. No murmur, no gallop. RESPIRATORY SYSTEM: Normal AP diameter. No accessory muscle use. No wheezing, no crackles. ABDOMEN: Soft, bowel sounds present, nontender, no distention. CENTRAL NERVOUS SYSTEM: No facial droop. Speech is clear. Obeys simple commands. Moves extremities. EXTREMITIES: No BLE edema, no erythema seen. Results & Data Results & Data ([facility]) Vital Signs (Past 12 Hours) Vital Signs Temp Pulse Pulse Resp BP BP Pulse Ox 07/22/21 14:42 36.6 C 62 18 132/75 96 07/22/21 12:47 99 07/22/21 11:36 36.5 C 62 16 121/67 95 07/22/21 07:38 36.6 C 62 18 135/74 96 07/22/21 07:24 64 07/22/21 03:46 36.8 C 67 20 146/83 H 96
[2021-07-22] MEDS: LIDOCAINE 5% 1 PATCH TD SCH (21:39)
[2021-07-22] MEDS: TAMSULOSIN HCL 0.4 MG CAP PO SCH (21:42)
[2021-07-23] MEDS: ISOSORBIDE MONO EXTENDED REL 30 MG TABCR PO SCH (08:37)
[2021-07-23] MEDS: CEFEPIME 2,000 MG in SYRINGE 0 ML IV SCH (08:37)
[2021-07-23] MEDS: MIRABEGRON ER 25 MG TAB PO SCH (08:38)
[2021-07-23] MEDS: ASPIRIN 81 MG ECTAB PO SCH (08:38)
[2021-07-23] MEDS: MULTIVITAMIN TAB PO SCH (08:38)
[2021-07-23] MEDS: ROSUVASTATIN CALCIUM 20 MG TAB PO SCH (08:38)
[2021-07-23] MEDS: METOPROLOL TARTRATE 50 MG TAB PO SCH (08:38)
--- NOTE | 2021-07-23 13:26 | Discharge Summary ---
Date of Service July 23, 2021 Admission HPI Per Admitting Provider This is an 81yo M with a PMH of CAD s/p CABG, BPH, paroxysmal A Fib, DLD, prediabetes and other medical problems listed below who presents with urinary symptoms. Seen by PCP in [place] earlier today for blood in urine for the past 2 days. Also endorsing dysuria and increased urinary urgency. History of BPH and follows with urology at [facility]. Due for cystoscopy in August. Found to be febrile in clinic at 38.7 with abnormal UA. Urine culture ordered and patient prescribed Cipro for 10 d course. Once he returned home and took first dose of Cipro, he felt significantly more weak and fell. Son was there to help him up. Denies head trauma or LOC. Ambulates with a walker at baseline. Had 1 episode of nausea and vomiting. Also had episode of bowel incontinence. Presented to ED for further evaluation. Currently patient endorsing pressure in suprapubic region. No fever, chills, lightheadedness, CP, SOB, nausea, vomiting, abdominal pain, diarrhea or constipation. Does take aspirin 324mg daily for history of CABG back in 2001. Also takes 200mg of celecoxib for history of back pain. Admission Exam Per Admitting Provider Vitals signs as noted above General Appearance:Moderately built and nourished, no apparent distress Head: normocephalic, Atraumatic Eyes: normal inspection, EOMI Neck: supple, Trachea midline Respiratory/Chest: Normal breath sounds, CTA Cardiovascular: S1, S2, No murmur, + Tachycardia Abdomen/GI:Soft, mild suprapubic tender, Bowel sounds present Extremities/Musculoskeletal:normal inspection, no edema Neurologic/Psych:AAOX3, grossly no focal neurological deficits Skin: normal color, warm Principal Diagnosis Proteus bacteremia Complicated UTI Hematuria Generalized weakness Acute kidney injury NSTEMI Discharge Exam GENERAL: Alert and oriented x3. NAD, on RA. HEENT: No pallor, no icterus. Pupils equal, round and reactive to light. Oral mucosa moist. NECK: No JVD, no neck masses. HEART: S1 and S2 heard. Regular rate and rhythm. No murmur, no gallop. RESPIRATORY SYSTEM: Normal AP diameter. No accessory muscle use. No wheezing, no crackles. ABDOMEN: Soft, bowel sounds present, nontender, no distention. CENTRAL NERVOUS SYSTEM: No facial droop. Speech is clear. Obeys simple commands. Moves extremities. EXTREMITIES: No BLE edema, no erythema seen. Discharge Data Allergies Allergy/AdvReac Type Severity Reaction Status Date / Time No Known Allergies Allergy Verified 02/19/20 14:18 Consultations 07/19/21 18:52 ED Decision to Admit Stat 07/20/21 07:09 Consult Cardiology Routine 07/21/21 17:44 Consult Infectious Diseases Routine Ordered Studies 07/19/21 18:57 US renal/blad retro comp Routine Hospital Course (1) Generalized weakness: (2) Hematuria: (3) Acute kidney injury: (4) Complicated UTI (urinary tract infection): 81yo M with a PMH of CAD s/p CABG, BPH, paroxysmal A Fib, DLD, prediabetes and other medical problems listed below who presents with urinary symptoms and was found to have sepsis 2/2 complicated UTI and acute kidney injury. He was managed for the following: (1) Severe Sepsis POA: increase Pulse, Increase RR, Increase lactate and UTI at presentation. (2) Complicated UTI (urinary tract infection): (3) Hematuria: in the setting of UTI and BPH, improving, Outpatient Urinalysis in 4-6 weeks. 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 Admitting renal ultrasound: Mild left-sided hydronephrosis and 5 mm nonobstructing right renal calculus. Admitting urine and blood culture UCx contaminated BlCx positive for Proteus Sp --> d/w ID 07/23 -->Bactrim DS 1 tab BD for 10days. repeat Bl Cx 07/22 is no growth at the time of DC per microbiology lab follow up. Patient being discharged on Bactrim DS 1 tab twice daily for 10 days, continue with probiotic for same duration. Patient feels a strong, remains afebrile, WBC normal, patient feeling a lot better. Patient to follow-up with 07/22 blood culture final results with PCP. Patient to follow-up with urology, get urinalysis in 4 to 6 weeks. (5) Acute kidney injury: Plan: Cr 1.45 (baseline ~1.0-1.1) In setting of UTI Resolved (6) Elevated troponin: (#) NSTEMI Plan: Initial troponin 0.58 up trended to 3.59, ECG with non-specific ST changes that are present previously but possibly worse 07/20 echo reviewed, EF 65 to 70% with mild concentric LVH and mild MR. No chest pain prior and during the hospitalization. Continue telemetry Cardiology evaluated, conservative Mx, no heparin drip, simvastatin changed to rosuvastatin this admission, Aspirin dose reduced this admission, Avoid QTc prolonging meds. Continue with outpatient cardiology medications with above modifications. (7) CAD (coronary artery disease): Plan: H/o CABG in 2001. Transitioned from aspirin 325 to 81mg given low platelets, hem aturia (8) Paroxysmal atrial fibrillation: Plan: Continue Lopressor (9) BPH (benign prostatic hyperplasia): Plan: Continue Flomax, follows with [facility]rology at [facility] DVT Ppx: SCDs given thrombocytopenia and hematuria Code status: FULL PCP: MOY Garza ([place]) Patient's was given a phone call to go to discharge instruction, left voicemail to call us back and ask for Dr. Schaeffer. Following instructions were communicated to the patient at the point of discharge: Follow-up with your primary care physician within a week time. As discussed at the bedside, you will need to follow-up with urology as an outpatient for hematuria, and repeat urine analysis in 4 to 6 weeks. You are being discharged to home with family support. You were found to have Proteus bacteremia, you will be discharged on Bactrim for 10 days course, follow-up with your primary care physician prior to completion of antibiotic. Also follow-up on 07/22 blood culture report with your primary care physician. It is incomplete on the day of discharge but no growth so far. Get your blood work CBC and BMP done in a week time upon discharge. As discussed at the bedside, your aspirin dose has been reduced and your simvastatin has been changed to rosuvastatin by cardiology while inpatient. Take medications as prescribed. Total Time Total Time Spent Total Time Spent (In Minutes): 40 Discharge Plan Discharge Items Patient Disposition: Home - Self-Care Reason For Visit: SEPSIS, 2/2 UTI, THEO, TROP ELEVATION Discharge Diagnosis: Proteus bacteremia Complicated UTI Hematuria Generalized weakness Acute kidney injury NSTEMI Activity: Resume your previous activity Non-emergency contact: Primary Care Provider Call non-emergency contact if: you have any medication questions, your symptoms worsen and your temperature is above 101 Follow-up/Referrals: Law Adam MD [Outside Practitioners] - 09/14/21 9:00 am (Date & Time 09/14/2021 9:00 AM Provider Law Adam MD Department Urology, [facility] ) Li Pendleton MD [Outside Practitioners] - 07/29/21 3:00 pm (Date & Time 07/29/2021 3:00 PM Provider Li Pendleton MD Department [facility] ) Diet: Heart Healthy Diet Texture: Easy to Chew Addtl Attending Provider Instructions: Follow-up with your primary care physician within a week time. As discussed at the bedside, you will need to follow-up with urology as an outpatient for hematuria, and repeat urine analysis in 4 to 6 weeks. You are being discharged to home with family support. You were found to have Proteus bacteremia, you will be discharged on Bactrim for 10 days course, follow-up with your primary care physician prior to completion of antibiotic. Also follow-up on 07/22 blood culture report with your primary care physician. It is incomplete on the day of discharge but no growth so far. Get your blood work CBC and BMP done in a week time upon discharge. As discussed at the bedside, your aspirin dose has been reduced and your simvastatin has been changed to rosuvastatin by cardiology while inpatient. Take medications as prescribed. Pending Studies at Discharge: Yes (Repeat blood culture final reports.) Stand-Alone Forms: [facility], Smoking Cessation Medications and DC Order Prescriptions: New rosuvastatin [Crestor] 20 mg Tablet 20 mg PO QAM Qty: 30 RF: 0 aspirin 81 mg Tablet,Delayed Release (Dr/Ec) 81 mg PO DAILY Qty: 30 RF: 0 acetaminophen 325 mg Tablet 650 mg PO Q8H PRN (Reason: fever or pain) 10 Days Qty: 30 RF: 0 sulfamethoxazole-trimethoprim [Bactrim DS] 800-160 mg tablet 1 tab PO BID 10 Days Qty: 20 RF: 0 Probiotic 3 billion cell capsule 3,000 mmu cells PO DAILY 10 Days Qty: 10 RF: 0 Continued isosorbide mononitrate 30 mg Tablet Extended Release 24 Hr 30 mg PO QAM RF: 0 tamsulosin 0.4 mg Capsule 0.4 mg PO HS RF: 0 metoprolol tartrate 50 mg Tablet 50 mg PO Q12 RF: 0 nitroglycerin 0.4 mg Tablet, Sublingual 0.4 mg sublingual UD PRN (Reason: Chest Pain) RF: 0 Myrbetriq 25 mg tablet extended release 24 hr 25 mg PO DAILY RF: 0 celecoxib 100 mg capsule 200 mg PO DAILY RF: 0 acetaminophen [Tylenol] 325 mg Tablet 650 mg PO Q4 PRN (Reason: arthritis pain) RF: 0 One-A-Day Men's 50 Plus 400-20-370 mcg Tablet 1 tab PO DAILY RF: 0 Discontinued simvastatin 10 mg Tablet 10 mg PO HS RF: 0 aspirin 325 mg Tablet 325 mg PO DAILY RF: 0 ciprofloxacin HCl 500 mg tablet 500 mg PO AMHS RF: 0 Discharge Orders: Discharge Order (Routine); Ordered 07/23/21 Ordered By: Hunter Marin Admission Data Admit Date/Time: 07/19/21 19:10 Attending Provider: Hunter Marin Admit Provider: Jaden Green Primary Care Provider: PCP,NO Other Providers: Jaden Green ; Burton Hall ; Johann Duque ; Aden Olvera ; Howard Lovelace ; Jordy Antonio ; Ike Munoz ; Vikki Reddy ; Regi Heath ; Elsa Ji ; Jermaine Renee ; Julio Mallory ; Leif Marie ; Pan Power I. ; Samson Lee II ; Gris Oneill ; Ike Montez ; Danilo Self
--- NOTE | 2021-07-29 11:53 | Coding Query ---
SEPSIS Severe sepsis and bacteremia have been both been documented. For accurate coding assignment, please clarify if severe sepsis is present: ( x ) Severe sepsis was present during this admission ( ) Bacteremia only was present during this admission ( ) Other, please clarify: Thank you for your assistance, Rehana Jarvis - Rn Recovery [facility]
== END 2021-07-23 15:03 | disposition home or self-care (01) | DRG 871 ==
LOC: ED 16:19 → 2N 19:10 → SUATTDRO 19:10 → 2N 22:30